=== PATIENT | female | born 1940 | race Caucasian/White ===

== ENCOUNTER 2023-12-13 19:02 | Inpatient (IN) | payer MEDICARE, BC, SELFPAY ==
[2023-12-13 20:00] VITALS: BP 137/74; PULSE 95; RESP 18; TEMP 36.4; O2SAT 97
[2023-12-13] MEDS: Insulin Lispro 100 UNIT/ML INSULN.PEN SC (21:47)
[2023-12-13 22:00] VITALS: BP 133/72; PULSE 91; RESP 15; RESP 16; TEMP 36.6; O2SAT 95; O2SAT 96
[2023-12-13 22:25] LABS: Bedside Glucose 267 mg/dL (74-106)
[2023-12-13] MEDS: BRIMONIDINE 0.2% 5ML BOTTLE 1 DRP OPHTHALMIC (22:57)
[2023-12-13] MEDS: Timolol 0.5% 5ML OPTH.BTL 1 DRP OPHTHALMIC (22:58)
[2023-12-14 06:14] LABS: Absolute Lymphocyte Count 1.37 X10^3/uL (0.83-4.51); Absolute Neutrophil Count 4.4 X10^3/uL (2.0-7.7); Basophil# 0.06 X10^3/uL; Basophil% 0.8 % (0-1); Eosinophils% 6.9 % (0-5); Hematocrit 39.6 % (37-47); Lymphocyte # 1.37 X10^3/ul (0.83-4.51); Lymphocyte % 18.8 % (19-41); Mean Corp Hgb Conc 32.8 g/dL (32-36); Mean Corpuscular Hgb 29.4 pg (27.0-32.0); Mean Corpuscular Volume 89.6 fL (81-99); Mean Platelet Vol. 10.4 fl (6.2-12.0); Monocyte# 0.97 X10^3/uL; Monocyte% 13.3 % (0-10); NRBC Flagged by Analyzer 0 % (0-5); Neutrophil # 4.35 X10^3/uL (2.7-7.7); Neutrophil % 59.9 % (47-70); Platelet Count 225 K/mm3 (150-450); RBC Distribution Width CV 12.7 % (11.6-14.6); RBC Distribution Width SD 41.6 fl (35.1-43.9); Red Blood Count 4.42 M/mm3 (4.2-5.4); White Blood Count 7.3 K/mm3 (4.4-11.0)
[2023-12-14] MEDS: Acetaminophen 500 MG Tablet 1000 MG PO ×3 (06:59→22:09)
[2023-12-14 07:00] VITALS: BMI 29.6
[2023-12-14 07:04] LABS: Phosphorus 3.7 mg/dL (2.5-4.9)
[2023-12-14 07:06] LABS: AST(SGOT) 12 U/L (15-37); Alanine Aminotransfer ALT/SGPT 20 U/L (13-56); Albumin, Serum 3.1 g/dL (3.2-5.0); Alkaline Phosphatase 55 U/L (45-117); Anion Gap 8 (5-15); BUN 11 mg/dL (7-18); BUN/Creat Ratio 18.3 RATIO (10-20); Calcium,Total 9.1 mg/dL (8.5-10.1); Chloride 102 mmol/L (98-107); EST Glomerular Filtration Rate 101 mL/min (>60); Est Glom Filt Rate - Afr Amer 122 mL/min (>60); Globulin 3.1 g/dL (2.2-4.2); Glucose 168 mg/dL (74-106); Potassium 3.8 mmol/L (3.5-5.1); Protein, Total 6.2 g/dL (6.4-8.2); Sodium Level 138 mmol/L (136-145)
[2023-12-14 07:37] LABS: Bedside Glucose 171 mg/dL (74-106)
[2023-12-14] MEDS: Insulin Lispro 100 UNIT/ML INSULN.PEN SC ×4 (08:34→22:15)
[2023-12-14] MEDS: Spironolactone 50 MG Tablet PO (08:34)
[2023-12-14] MEDS: BRIMONIDINE TARTRATE OPHTHALMIC ×2 (08:34→22:06)
[2023-12-14] MEDS: Aspirin 81 MG TAB.CHEW PO (08:34)
[2023-12-14] MEDS: Multivitamins,Therapeutic Tablet 1 TABLET PO (08:34)
[2023-12-14] MEDS: TIMOLOL OPHTHALMIC ×2 (08:34→22:06)
[2023-12-14] MEDS: Ezetimibe 10 MG Tablet PO (08:34)
[2023-12-14] MEDS: Lidocaine 5% Patch 1 PATCH TOPICAL (08:35)
[2023-12-14 08:40] VITALS: BP 138/73; PULSE 82; RESP 16; TEMP 36.5; O2SAT 96
[2023-12-14 09:15] LABS: Bedside Glucose 245 mg/dL (74-106)
--- NOTE | 2023-12-14 09:36 | HP.PCM_ITS ---
HPI - General General Date of Admission: 12/13/23 Date of Service: 12/14/23 Chief Complaint: Skull fracture due to fall HPI Narrative ALISON DAMICO, is a 83 YO F with a PMH of DM II, HLD, BPPV (X4 years), DJD, presbycusis (has bilateral hearing aids), glaucoma, chronic back pain, gallbladder dysfunction and hx of breast CA who had a ground level fall on 12/09/23. She struck her head but, she did not lose consciousness. She sustained a non-displaced occipital fx of the skull. She was admitted to [facility] [place]. C spine imaging was negative for fracture or dislocation. CT of C/A/P showed endometrial thickening measuring up to 9 mm with no other pathology. CTA of the neck on 12/10/2023 showed bilateral atheroscle rotic disease up to 50% stenosis. CT scan of the lumbar spine shows multilevel spondylitic changes with at least moderate spinal canal stenosis at L3-L4. There was an ulcerated plaque in the left carotid artery. Vascular surgery recommended 81 mg of aspirin daily and a high intensity statin for risk factor modification. Lab at admission to showed a low sodium at 132 and low chloride at 95. The BUN was 10 with a creatinine of 0.42. Glucose was elevated at 167. TSH was normal. Hemoglobin A1c is 7.3%. She is on Victoza for the past 3 years and says she takes 1.8 mg weekly. While at she was seen by PT/OT and acute rehab was recommended. Alison was transferred to the acute inpt rehab unit at [facility] on 12/13/23 for 3 hours of therapy daily to restore function/independence at or near her level prior to the fall. She sees a neurologist for vertigo, Dr. Ed Noe PCP is Dr. Tsering Valentine in [place] she has declined therapy for anxiety/depression in the past. passed 4 years ago........interesting that this is when the vertigo started. Alison tells me that she had vertigo after her and she went to therapy and it resolved. Recently she has been c/o a head sensation that seems to get worse when she is up and walking about after her breakfast. She denies having vertigo and denies spinning. She only recently got back on Meclizine, from the neurologist, and took it for 1 week and it did not help......it actually made her worse. She tells me that she had depression after her passed but, she went to counselling at [facility] and she says it helped. She denies feeling depressed at this time and she also denies anxiety. She denies problems sleeping. she falls asleep on the couch at night and then gets up after a while and goes to the kitchen for a snack of a pudding cup and some fruit and then she goes to bed.......this is usually around 2 AM. She denies ever being diagnosed with sleep apnea. She has had a hysteroscopy within the past 4 years because she had some vaginal bleeding. She is not able to recall the name of the doctor she saw but, she had a hysteroscopy and it was negative for malignancy. She tells me that she had an IUD for many years. Alison tells me that she takes Aldactone only when she has increased swelling in her legs.....she does not often take this because it makes me pee too much. All lab work done this morning was personally reviewed. CBC is unremarkable. Sodium is 138 and the potassium is 3.8. BUN is 11 with a creatinine of 0.6. LFTs are unremarkable. Magnesium, phosphorus and calcium are within normal limits. Vitamin D was ordered and is pending. Echocardiogram shows ejection fraction of 55 to 60%. There is impaired relaxation pattern of the left ventricular diastolic filling. The atria are normal size. The aortic valve is mildly thickened. The mitral valve is mildly thickened. She has a trace of tricuspid and mitral regurgitation. [facility] Medical History (Updated 12/15/23 @ 12:[address] Nena Stacy DO) Cancer Cancer Chronic back pain Diabetes mellitus, type 2 Dysfunctional gallbladder Episodic recurrent vertigo Glaucoma Hyperlipidemia Lumbar canal stenosis Presbycusis of both ears Skull fracture without loss of consciousness Thickened endometrium Vertebral fracture, closed Home Medications acetaminophen 500 mg capsule 1,000 mg PO Q8H PRN pain 12/13/23 [History Last Taken Unknown] aspirin 81 mg capsule 81 mg PO DAILY heart health 12/13/23 [History Last Taken Unknown] brimonidine 0.2 %-timolol 0.5 % eye drops drp ophthalmic (eye) BID glaucoma 12/13/23 [History Last Taken Unknown] diclofenac sodium 1 % topical gel topical BID pain to knee 12/13/23 [History Last Taken Unknown] ezetimibe 10 mg tablet 10 mg PO DAILY cholesterol inhibitor 12/13/23 [History Last Taken Unknown] lidocaine 4 % topical patch (Lidocaine Pain Relief) 1 patch topical Q12H pain to lower mid back 12/13/23 [History Last Taken Unknown] multivitamin (Daily Multi-Vitamin tablet) 1 tab PO DAILY supplement 12/13/23 [History Last Taken Unknown] naproxen 500 mg tablet,delayed release (EC-Naprosyn) 250 mg PO .Q6H/PRN PAIN 12/13/23 [History Last Taken Unknown] spironolactone 50 mg tablet (Aldactone) 50 mg PO DAILY HTN 12/13/23 [History Last Taken Unknown] liraglutide 0.6 mg/0.1 mL (18 mg/3 mL) subcutaneous pen injector (Victoza 2-Morgan) 0.3 mg subcut DAILY glucose 12/14/23 [History Last Taken Unknown] Allergy/AdvReac Type Severity Reaction Status Date / Time [id number] Reductase Allergy Mild unknown Verified 12/13/23 20:24 Inhibitor alendronate sodium AdvReac Intermediate burning in Verified 12/13/23 20:24 [From Fosamax] stomach adhesive tape AdvReac Mild blisters Verified 12/13/23 20:24 Family History (Updated 12/14/23 @ 10:[address] Nena Stacy DO) Mother Heart disease Hypertension Father Hypertension Surgical History (Updated 12/14/23 @ 10:[address] Nena Stacy DO) H/O left mastectomy History of ankle surgery History of hysteroscopy Social History (Updated 12/14/23 @ 11:[address] Nena Stacy DO) household members: none housing: house number of children: 3 current occupational status: retired and other details: Retired RN. pets and animals: Yes (1 cat Named Michaela) pets and animals: cat(s) leisure activities: reading history of recent travel: No sexually active: No Smoking Status: Never smoker alcohol intake: never substance use type: does not use ROS Review of Systems ROS Unobtainable: Denies due to encephalopathy, due to endotracheal tube, due to mental condition or due to mental status Constitutional Constitutional: Denies anorexia, change in weight, chills, fatigue, fever(s), headache(s), night sweats, poor appetite or weakness Eyes Eyes: Reports dry eyes; Denies blurry vision, change in vision, diplopia, discharge from eye(s), eye pain or loss of vision ENT HEENT: Reports abnormal hearing and hearing loss; Denies dysphagia, headache(s), nasal congestion or sore throat Cardiovascular Cardiovascular: Reports edema and lightheadedness; Denies chest pain, dyspnea on exertion, orthopnea, palpitations, paroxysmal nocturnal dyspnea or syncope Respiratory/Chest Respiratory/Chest: Denies cough, dyspnea, shortness of breath at rest, shortness of breath with exertion or wheezing Gastrointestinal Gastrointestinal: Reports diarrhea, dyspepsia and other Details: Diarrhea is occasional and the dyspepsia happens only with fatty foods. ; Denies abdominal pain, constipation, hematemesis, hematochezia, nausea or vomiting Genitourinary Genitourinary: Reports urinary incontinence and other Details: Occasional urge incontinence. Musculoskeletal Musculoskeletal: Reports back pain, joint pain, joint stiffness and other Details: she has difficulty ambulating and uses a device but, this is due to loss of balance and not so much weakness. ; Denies joint swelling, neck pain, numbness or tingling Integumentary Integumentary: Reports alopecia and other Details: she has a healing wound aolng the R jaw line from recent excision of a skin cancer. ; Denies jaundice Neurologic Neurologic: Denies confusion, disequilibrium, dizziness, focal weakness, headache(s), paresthesias, radicular pain, seizures or tremor(s) Psychiatric Psychiatric: Denies abnormal sleep pattern, anhedonia, anxiety, change in appetite, depression, homicidal ideation, hopelessness, irritability, mood swings or suicidal ideation Endocrine Endocrinology: Denies change in body appearance, polydipsia or polyuria Hematologic/Lymphatic Hematologic/Lymphatic: Reports easy bruising; Denies easy bleeding or lymphadenopathy Allergic/Immunologic Allergic/Immunologic: Denies rhinitis, eczemia or asthma Vital Signs Vital Signs Vital Signs: 12/13/23 20:00 12/13/23 22:00 12/13/23 22:00 Temperature 97.5 F L 97.9 F Temperature Source Temporal Temporal Pulse Rate 95 91 91 Pulse Strength Respiratory Rate 18 16 15 Respiratory Effort Normal Non-Labored Respiratory Depth Normal Respiratory Pattern Normal Blood Pressure 137/74 H 133/72 H Blood Pressure Mean 95 92 Blood Pressure Source Monitor Monitor Blood Pressure Position Semi-Fowlers Semi-Fowlers Blood Pressure Location Right Arm Right Arm Pulse Ox 97 95 96 Oxygen Delivery Method Room Air Room Air Room Air 12/14/23 08:42 12/14/23 08:43 12/14/23 08:40 Temperature 97.7 F L Temperature Source Temporal Pulse Rate 82 Pulse Strength Normal (2+) Respiratory Rate 16 Respiratory Effort Normal Non-Labored Respiratory Depth Normal Respiratory Pattern Normal Blood Pressure 138/73 H Blood Pressure Mean 94 Blood Pressure Source Monitor Blood Pressure Position Semi-Fowlers Blood Pressure Location Right Arm Pulse Ox 96 Oxygen Delivery Method Room Air Room Air Weight Weight: 161 lb Body Mass Index (BMI) 29.6 Physical Exam Const alert and no apparent distress Constitutional Narrative: forgetful [place]'....I have to repeat myself even though she has her hearing aids in General Appearance: cooperative, comfortable, well kempt and well developed HEENT normocephalic HEENT Narrative: Mucous membranes are dry.. She has Bandaid over the R side of the jaw.....she had recent excision of a sking cancer. There is no jeremy-incisional erythema, no discharge from the wound and no significant swelling around the incision. No cervical adenopathy Nose: external nose normal External Ear: external ears normal and other Other Details: Bilateral hearing aids are present Eyes PERRL, EOMs intact bilaterally, conjunctivae normal and no scleral icterus Eyes Narrative: No mattering of the eyelashes or discharge from the eye. General Eye: normal appearance of both eyes Neck supple, no JVD, No nodes and no carotid bruits Chest Chest Narrative: Has had a left mastectomy. Chest: symmetrical chest wall rise Resp normal respiratory effort, normal air movement and clear to auscultation bilaterally Effort and Inspection: able to speak in complete sentences Cardio regular rate, regular rhythm, no murmurs, no rub and no gallops Cardio Narrative: No ectopy GI normal to inspection, nondistended, normoactive bowel sounds, soft to palpation and non-tender GI Narrative: No guarding with palpation. No organomegaly appreciated and no masses. Back/Spine Lumbar Spine / Lower Back: normal to inspection Extremity no calf tenderness Extremity Narrative: Trace pitting edema of the ankles. Skin no jaundice General Skin Exam: no breakdown Wound Narrative: The fascial incision over the right jaw is healing and there is no jeremy- incisional erythema, no discharge and no significant swelling around the inc ision. Neuro oriented x3, CN's II-XII intact bilaterally, moves all extremities and no sensory deficits noted Neuro Narrative: Forgetful Psych mental status grossly normal, cooperative, affect normal, denies hallucinations and denies suicidal ideation Appearance: grossly normal, appropriate and well kempt Attitude: calm Activity / Motor Behavior: appropriate eye contact Speech: normal speech Results Lab / Micro Data 12/14/23 05:44 12/14/23 05:44 Labs: Laboratory Results - last 24 hr 12/13/23 21:47: POC Glucose 267 H 12/14/23 05:44: WBC 7.3, RBC 4.42, Hgb 13.0, Hct 39.6, MCV 89.6, MCH 29.4, MCHC 32.8, RDW Std Deviation 41.6, RDW Coeff of [place] 12.7, Plt Count 225, MPV 10.4, Immature Gran % (Auto) 0.300, Neut % (Auto) 59.9, Lymph % (Auto) 18.8 L, [place] % (Auto) 13.3 H, Eos % (Auto) 6.9 H, Baso % (Auto) 0.8, Absolute Neuts (auto) 4.4, Absolute Lymphs (auto) 1.37, Nucleated RBC % 0, Sodium 138, Potassium 3.8, C hloride 102, Carbon Dioxide 28.0, Anion Gap 8, BUN 11, Creatinine 0.60, Est GFR (MDRD) Af Amer 122, Est GFR (MDRD) Non-Af 101, BUN/Creatinine Ratio 18.3, Glucose 168 H, Calcium 9.1, Phosphorus 3.7, Magnesium 2.0, Total Bilirubin 0.50, AST 12 L, ALT 20, Alkaline Phosphatase 55, Total Protein 6.2 L, Albumin 3.1 L, Globulin 3.1, Albumin/Globulin Ratio 1.0 12/14/23 07:07: POC Glucose 171 H 12/14/23 08:30: POC Glucose 245 H Assessment & Plan Assessment/Plan (1) Physical debility: (2) History of recent fall: (3) Skull fracture without loss of consciousness: QUALIFIERS: Encounter type: subsequent encounter Fracture type: closed (4) Episodic recurrent vertigo: PLAN: Not really having vertigo. What she is c/o is LOB and feeling lightheaded when standing. she was dehydrated with a low sodium at the time of presentation to the ED. She was taking Aldactone 50 mg PRN for ankle swelling prior to the fall. EF is normal and no dx of pulmonary HTN. Likely etiology of the ankle edema is obesity and venous insufficiency. Will continue with SVETA drew. (5) Diabetes mellitus, type 2: PLAN: Plan PLAN PT for gait stability OT for ADL's Speech therapy for cognitive assessment due to poor memory and recent head trauma Analgesics as needed Bowel protocol Fall precautions Assess for Anxiety/Depression GI prophylaxis with famotidine-ordered as needed once daily for dyspepsia DVT prophylaxis with Lovenox 40 mg subcu daily Follow up with PCP, vascular surgery (to monitor for progression of carotid stenosis) and neurology following DC from IP Rehab AM lab including CMP, CBC, Mag and Phos - personally reviewed. Overnight trending pulse ox Check a vitamin D level Obtain copy of TTE done at [facility] Discontinue daily spironolactone Her daughter Malini is bringing in Victoza which we will start this afternoon. Famotidine 20 mg daily as needed dyspepsia/nausea Lovenox 40 mg subcu daily Orthostatic vital signs Obtain records from PCP and neurology Charges/Coding Visit Charges Inpatient E&M: 56036 Init Hosp L2
--- NOTE | 2023-12-14 11:46 | PCM.RU.PYE ---
Admission Information Primary Diagnosis:: Skull fracture Status Changes from Prescreening?: No changes Identified Actual Problem List:: Falls, Skin Intergrity, Pain, ALteration in Cmfrt, Mobility Impaired, Self Care Deficit, Diabetes, Hyperglycemia and Alteration-Leisure Activ. Potential Problem List:: DVT, Bleeding, Infection, UTI, Aspiration, Falls, Skin Integrity and Depression Risk of Complications DVT: LMWH and SVETA Hose Bleeding: Monitor Lab Values, Nursing to Teach Precautions for anti-coagulation therapy., Wound, if applicable, to be assessed every shift. and Stroke patients assessed for lethargy or change in status. Infection: Clinical Staff to Monitor for S/S of infection: and S/S of infection include fever, redness, warmth, etc. Urinary Tract Infection: Monitor for frequency, burning, discomfort, or incontinence. and Nursing will obtain urine sample for urinalysis and C&S when ordered. Aspiration: Clinical staff will monitor for coughing, drooling, congestion., Speech will evaluate swallowing and dsyphasia. and Nursing will monitor patient swallowing during meals. Falls: Patient will be evaluated for Fall Precautions and Patient will be placed on Fall Precautions as indicated per protocol. Skin Breakdown: Nursing will assess skin daily using assessment tool. and Nursing will place on Skin Breakdown Precautions as indicated. Pain: Clinical staff will assess patient's pain level per protocol., Medications will be given, if needed, and the pain level reassessed. and Other methods: Massage, distraction, decrease stimulus, etc. used PRN. Plan of Care Patient requires physician specializing in physical medicine and rehab oversight to provide close medical supervision of rehab issues including: Pain Management, Sleep Problems, Bowel and Bladder, Medical and co-morbidity Management, DVT prophylaxis, Rehabilitation Leadership and Coordination of treatment team Patient needs Physical Therapy: For a minimum of 1 hour and At least 5 out of 7 days Patient needs Physical Therapy to improve:: Mobility, Strengthening, Transfers, Stretching, ROM, Endurance, Stairs, Gait and Balance Patient needs Occupational Therapy: For a minimum of 1 hour and At least 5 out of 7 days Patient needs Occupational Therapy to improve ADL's incl.: Eating, Grooming, Bathing, Dressing, Toileting, Toilet transfers, Community Reintegration, Higher functioning activities, Household tasks, Adaptive Equipment, Splinting and Other activities as determined Patient requires 24/ Rehabilitation Nursing for: Pain Issues, Identifying and preventing risk factors, Monitoring and reporting current medical conditions, Assisting with ambulation, transfer, and all ADL's, Teaching patients about disease process and medications, Family teaching, Providing safe environment, Bowel and Bladder Issues, Skin integrity and Medication Management Patient needs Certified Technician Specialist/ Case Management for: Discharge Planning, Arranging Home Equipment or Services and Family Interventions Patient needs Dietary and Nutrition Services for: Adequate Nutrition, Nutritional Supplements and Nutritional Education Goals Goals Patient will remain: free from falls Patient will perform eating at: MOD I level of assist. Patient will perform bed mobility at: MOD I level of assist. Patient will complete transfers from bed to chair at: MOD I level of assist. Patient will ambulate: - (350 feet with least restrictive device at standby assist on various surfaces to allow her to return home/community) Patient will complete upper body dressing at: MOD I level of assist. Patient will complete lower body dressing at: MOD I level of assist. Patient will complete toilet transfer at: MOD I level of assist. Patient will complete toileting at: MOD I level of assist. Patient will perform bathing at: MOD I level of assist. Patient will perform Tub/Shower transfer at: MOD I level of assist. Patient will complete grooming at: MOD I level of assist. Patient will complete home management skills at: MOD I level of assist. Patient will achieve: - (2 steps with 1 handrail at standby assist to allow entrance to her home.) Patient will have pain level of: of 3 or less Patient's skin will: remain intact Patient will receive: adequate nutrition. Discharge Planning Estimated Length of stay (days): 21 Anticipated D/C Destination: Home (Home health care versus outpatient therapy to be determined closer to the discharge date.) Was Preadmission Assessment Accurate?: Yes
[2023-12-14 12:30] LABS: Vitamin D,25 Hydroxy 23.2 ng/mL
[2023-12-14 12:41] LABS: Bedside Glucose 201 mg/dL (74-106)
[2023-12-14] MEDS: Flu Vacc QS2023-24(65YR UP)/PF 240 MCG/0.7 ML Syringe IM (12:53)
[2023-12-14 13:00] VITALS: BP 131/62; BP 134/61; BP 134/78; PULSE 84; PULSE 85; PULSE 92
[2023-12-14 16:22] LABS: Bedside Glucose 210 mg/dL (74-106)
[2023-12-14 19:26] VITALS: BP 144/75; PULSE 97; RESP 17; TEMP 36.6; O2SAT 981
[2023-12-14 21:34] VITALS: PULSE 97; RESP 17; O2SAT 98
[2023-12-14 22:20] VITALS: PULSE 85; O2SAT 97
[2023-12-14 23:04] LABS: Bedside Glucose 203 mg/dL (74-106)
[2023-12-15 03:00] VITALS: BMI 30.9
[2023-12-15] MEDS: Enoxaparin 40 MG/0.4 ML Syringe SC (06:35)
[2023-12-15] MEDS: Acetaminophen 500 MG Tablet 1000 MG PO ×3 (06:35→20:46)
[2023-12-15 06:59] LABS: Bedside Glucose 159 mg/dL (74-106)
[2023-12-15] MEDS: Senna/Docusate Sodium 1 Tablet 2 TABLET PO (08:27)
[2023-12-15] MEDS: Lidocaine 5% Patch 1 PATCH TOPICAL (08:27)
[2023-12-15] MEDS: Celecoxib 100 MG Capsule PO (08:27)
[2023-12-15] MEDS: Aspirin 81 MG TAB.CHEW PO (08:27)
[2023-12-15] MEDS: Ezetimibe 10 MG Tablet PO (08:27)
[2023-12-15] MEDS: Multivitamins,Therapeutic Tablet 1 TABLET PO (08:27)
[2023-12-15] MEDS: TIMOLOL OPHTHALMIC ×2 (08:28→20:47)
[2023-12-15] MEDS: BRIMONIDINE TARTRATE OPHTHALMIC ×2 (08:28→20:47)
[2023-12-15] MEDS: Famotidine 20 MG Tablet PO (08:32)
[2023-12-15 10:00] VITALS: BP 126/60; PULSE 79; RESP 16; TEMP 36.8; O2SAT 97
[2023-12-15 12:17] LABS: Bedside Glucose 187 mg/dL (74-106)
[2023-12-15] MEDS: Insulin Lispro 100 UNIT/ML INSULN.PEN SC (12:20)
--- NOTE | 2023-12-15 13:02 | PCM.PROGNOTE ---
Subjective Subjective Afebrile VSS-systolic blood pressure is a tad high but the blood pressure this a.m. was 126/60. Heart rate is within normal limits. Orthostatic vital signs done yesterday were normal however there was only 1 minute allowed between but just some changes. Maintaining appropriate oxygen saturation on RA-95 to 98%. Oral intake - FOOD good FLUIDS fair Has been incontinent of urine The blood sugar record was reviewed. She took her first dose of Victoza this morning. Fasting was 159 and the blood sugar prior to lunch was 187. Refused the SSI in the morning. Discussed with nursing - no problems that need addressed. Slept well las night. Reviewed the THERAPY notes Medication list reviewed. vitamin D level is low at 23. The overnight trending pulse ox was abnormal with hypoxemia and 1 desaturation event. Pulse ox < 90% 4.8% of the time with `1 desaturation event. neck circumference is 38 cm. She snores and has daytime somnolence. Can fall asleep in the car if driving for more than 1 hour and routinely falls asleep watching TV. Having memory difficulties. Naps during the day. Has never had a sleep study. Alison tells me that she slept well last night. She denies cephalgia, neck pain, chest pain, shortness of breath, cough, palpitations, N/V/abd pain. calf tenderness and dysuria. she denies restless legs at night but, she tells me that the SCD's were bothersome last night. Objective Data Objective Data Vital Signs: Vital Signs Temp Pulse Resp BP Pulse Ox O2 Del Method FiO2 98.3 F 79 16 126/60 H 97 Room Air 21 12/15/23 10:12/15/23 10:12/15/23 10:12/15/23 10:12/15/23 10:12/15/23 10:12/14/23 22:20 Oxygen Delivery Method Room Air Weight: 168 lb 3.015 oz Body Mass Index (BMI) 30.9 Intake & Output: Intake and Output for Last 24 Hours 12/13/23 12/14/23 12/15/23 23:59 23:59 23:59 Intake Total 1200 / 1200 780 / 780 Output Total 2049 / 2049 600 / 600 Balance -850 / -850 180 / 180 Lab / Micro Data 12/14/23 05:44 12/14/23 05:44 Labs: Laboratory Results - last 24 hr 12/14/23 16:00: POC Glucose 210 H 12/14/23 22:12: POC Glucose 203 H 12/15/23 06:33: POC Glucose 159 H 12/15/23 11:59: POC Glucose 187 H Physical Exam Const alert and no apparent distress Constitutional Narrative: forgetful [place]....I have to repeat myself even though she has her hearing aids in HEENT HEENT Narrative: Mucous membranes are dry.. She has Bandaid over the R side of the jaw.....she had recent excision of a sking cancer. There is no jeremy-incisional erythema, no discharge from the wound and no significant swelling around the incision. No cervical adenopathy Resp normal respiratory effort, normal air movement and clear to auscultation bilaterally Effort and Inspection: able to speak in complete sentences Cardio regular rate, regular rhythm, no murmurs, no rub and no gallops Cardio Narrative: No ectopy GI normal to inspection, nondistended, normoactive bowel sounds, soft to palpation and non-tender Extremity no calf tenderness Extremity Narrative: the ankle edema she had yesterday has resolved with SVETA hose. Skin no jaundice General Skin Exam: no breakdown Wound Narrative: The fascial incision over the right jaw is healing and there is no jeremy-incisional erythema, no discharge and no significant swelling around the incision. Assessment & Plan Assessment/Plan (1) Vitamin D deficiency: (2) Physical debility: (3) Skull fracture without loss of consciousness: QUALIFIERS: Encounter type: subsequent encounter Fracture type: closed (4) Memory loss: PLAN: Chronic? Acute? or acute on chronic due to recent fall/TBI. She realizes that her memory is not what it used to be. Will need to discuss with her dtr Malini to see if she has noticed any memory problems prior to the fall/skull fx/TBI (5) Diabetes mellitus, type 2: PLAN: Will continue to monitor the BS's AC and HS for a few more days. Would like to see the BS's consistently < 180 with no hypoglycemia. (6) Episodic recurrent vertigo: PLAN: Orthostatics were negative yesterday however there was only 1 minute allowed between position changes. The head sensation only seems to happen when she is standing. PLAN: Plan 1. Continue therapy 2. Continue ACHS blood sugars. Dc the SSI since she had her Victoza today. If the BS's are > 180 will need to add and oral agent. did not tolerate 1,000 mg of Glucophage in the past but, may tolerate a lower dose and there would be less risk of hypoglycemia than Amaryl 3. Start a vitamin D supplement 4. Consult speech therapy for cognitive evaluation. 5. Recommend an overnight sleep study at OR. 6. Encouraged increased fluid intake Charges/Coding Visit Charges Inpatient E&M: 52631 Subs Hosp L1
--- NOTE | 2023-12-15 15:49 | CASEMGMT ---
[facility] Sw met with patient to complete initial assessment. Introduced self and role. Sw verified patient's contacts. Patient confirmed code status to be full code. Patient states that she has completed advanced directives, and has asked her daughter to bring in copies to be scanned into her file. Patient was educated to insurance benefits. Patient states that her goal is to be discharged to home when medically ready. Sw will remain involved and available throughout current hospitalization and will assist with discharge planning. Nazia Levi, MULTI SKILLED OPERATOR, [employer] ENGINEER
[2023-12-15 16:33] LABS: Bedside Glucose 235 mg/dL (74-106)
[2023-12-15 20:15] VITALS: BP 138/62; PULSE 87; RESP 20; TEMP 36.5; O2SAT 96
[2023-12-15 20:35] VITALS: PULSE 87; RESP 20; O2SAT 96
[2023-12-15 21:36] LABS: Mucous, Urine 0 SEEN /hpf (<or=2+); Red Blood Cells-Urine 0 SEEN /hpf (0-5); Squamous Epithelial Cells - UA 0 SEEN /hpf (5-10)
[2023-12-15 21:38] LABS: Color, Urine Straw (Yellow); Glucose, Dipstick Normal (Normal); Ketone-Dipstick Negative (Negative); Leukocyte Esterase-Dipstick 100 /ul (Negative); Nitrite-Dipstick Negative (Negative); Occult Blood-Urine Negative /ul (Negative); Protein-Dipstick Negative (Negative); Specific Gravity, Urine 1.005 (1.002-1.030); Urine Bilirubin Dipstick Negative (Negative); Urine Clarity Clear (Clear); Urine Urobilinogen Normal (Normal)
[2023-12-15 21:46] LABS: Bacteria 1+ /hpf (None Seen); White Blood Cells 0-5 SEEN /hpf (0-5)
[2023-12-15 21:49] LABS: Bedside Glucose 160 mg/dL (74-106)
[2023-12-16] MEDS: Acetaminophen 500 MG Tablet 1000 MG PO ×3 (06:19→22:16)
[2023-12-16] MEDS: Enoxaparin 40 MG/0.4 ML Syringe SC (06:19)
[2023-12-16 06:43] LABS: Bedside Glucose 162 mg/dL (74-106)
[2023-12-16] MEDS: Lidocaine 5% Patch 1 PATCH TOPICAL (08:07)
[2023-12-16] MEDS: Cholecalciferol (VIT D3) 25 MCG TABLET (1,000 UNITS) PO (08:08)
[2023-12-16] MEDS: TIMOLOL OPHTHALMIC ×2 (08:08→22:16)
[2023-12-16] MEDS: Ezetimibe 10 MG Tablet PO (08:08)
[2023-12-16] MEDS: Multivitamins,Therapeutic Tablet 1 TABLET PO (08:08)
[2023-12-16] MEDS: Celecoxib 100 MG Capsule PO (08:08)
[2023-12-16] MEDS: BRIMONIDINE TARTRATE OPHTHALMIC ×2 (08:08→22:16)
[2023-12-16] MEDS: Aspirin 81 MG TAB.CHEW PO (08:08)
[2023-12-16 08:55] VITALS: BP 135/72; PULSE 80; RESP 17; TEMP 36.6; O2SAT 94
--- NOTE | 2023-12-16 11:39 | PCM.PROGNOTE ---
Subjective Subjective Alison was seen on team rounds. Her daughter Malini participated by phone. Afebrile VSS -systolics are more often than not mildly elevated and ranged from 134-144. Heart rate is within normal limits. Maintaining appropriate oxygen saturation on RA Oral intake - FOOD good FLUIDS poor..... She only took 980 yesterday and the fluid balance was -980. Overnight she was -410. The blood sugar record was reviewed. Blood sugar at 4 PM yesterday was 235. At at bedtime it was 160 and this morning it was 162. Discussed with nursing -she reported to night nursing that she got dizzy when getting up from a chair or laying down. Nurses notes say that oxygen was applied but this is not reflected in the graphic chart. Reviewed the THERAPY notes Medication list reviewed. Urine yesterday showed 0 RBCs per high-power field and 0-5 WBCs per high-powered field. There was 1+ bacteria. It was nitrite negative. She is afebrile with a normal white blood cell count. She denies dysuria. No need for a urine culture at this time. Still c/o dizziness. She also admits to feeling anxious....this likely does not help with the dizziness. She denies cephalgia, chest pain, shortness of breath, cough, nausea/vomiting/abdominal pain, dysuria and calf pain. Objective Data Objective Data Vital Signs: Vital Signs Temp Pulse Resp BP Pulse Ox O2 Del Method FiO2 97.9 F 80 17 135/72 H 94 Room Air 21 12/16/23 08:55 12/16/23 08:55 12/16/23 08:55 12/16/23 08:55 12/16/23 08:55 12/16/23 08:55 12/14/23 22:20 Oxygen Delivery Method Room Air Weight: 168 lb 3.015 oz Body Mass Index (BMI) 30.9 Intake & Output: Intake and Output for Last 24 Hours 12/14/23 12/15/23 12/16/23 23:59 23:59 23:59 Intake Total 1200 / 1200 980 / 980 340 / 340 Output Total 2049 / 1959 750 / 750 Balance -850 / -850 -980 / -980 -410 / -410 Lab / Micro Data 12/14/23 05:44 12/14/23 05:44 Labs: Laboratory Results - last 24 hr 12/15/23 11:59: POC Glucose 187 H 12/15/23 16:05: POC Glucose 235 H 12/15/23 21:15: Urine Color Straw, Urine Clarity Clear, Urine pH 7.0, Ur Specific [place] 1.005, Urine Protein Negative, Urine Glucose (UA) Normal, Urine Ketones Negative, Urine Occult Blood Negative, Urine Nitrite Negative, Urine Bilirubin Negative, Urine Urobilinogen Normal, Ur Leukocyte Esterase 100 H, Urine RBC 0 SEEN, Urine WBC 0-5 SEEN, Ur Squamous Epith Cells 0 SEEN, Urine Bacteria 1+, Urine Mucus 0 SEEN 12/15/23 21:28: POC Glucose 160 H 12/16/23 06:17: POC Glucose 162 H Physical Exam Const alert Constitutional Narrative: Hard of hearing, even with the hearing aids in General Appearance: cooperative HEENT normocephalic Mouth: dry mucous membranes Eyes PERRL, EOMs intact bilaterally, conjunctivae normal and no scleral icterus Eyes Narrative: No mattering of the eyelashes or discharge from the eye. General Eye: normal appearance of both eyes Neck supple Chest Chest Narrative: Has had a left mastectomy. Chest: symmetrical chest wall rise Resp normal respiratory effort and clear to auscultation bilaterally Resp Narrative: Able to speak in complete sentences. Effort and Inspection: able to speak in complete sentences Cardio regular rate, regular rhythm, no murmurs and no gallops Cardio Narrative: No ectopy GI normal to inspection, nondistended, normoactive bowel sounds, soft to palpation and non-tender GI Narrative: No guarding with palpation. No organomegaly appreciated and no masses. Back/Spine Lumbar Spine / Lower Back: normal to inspection Extremity no calf tenderness Extremity Narrative: Ankle edema is controlled with SVETA hose. Skin no jaundice General Skin Exam: no breakdown Rashes: no rashes Wound Narrative: The fascial incision over the right jaw is healing and there is no jeremy-incisional erythema, no discharge and no significant swelling around the incision. Neuro oriented x3, CN's II-XII intact bilaterally, moves all extremities and no sensory deficits noted Neuro Narrative: Forgetful Psych mental status grossly normal, cooperative, affect normal, denies hallucinations and denies suicidal ideation Appearance: grossly normal, appropriate and well kempt Attitude: calm Activity / Motor Behavior: appropriate eye contact Speech: normal speech Assessment & Plan Assessment/Plan (1) Vitamin D deficiency: (2) Physical debility: (3) Skull fracture without loss of consciousness: QUALIFIERS: Encounter type: subsequent encounter Fracture type: closed (4) Memory loss: (5) Diabetes mellitus, type 2: (6) Episodic recurrent vertigo: PLAN: Plan 1. Continue therapy 2. Start Cozaar 25 mg p.o. daily 3. Start Glucophage 500 mg daily........may need to hold stool softeners. 4. PT mentioned that her shoulders and neck muscles are very tight. She holds her head at an angle when walking and working with therapy. She suggested trying to treat the musculoskeletal problems to see if the dizziness improves. Still no nystagmus. She does have hearing loss and occasional ringing in the ears. Meniere's is a possibility BUT, staring a diuretic with her is not going to be good ....... she is chronically volume depleted due to poor oral intake. I suspect the dizziness is multifactorial. Will try treating the musculoskeletal dysfunction in the next and shoulders with a cream containing Voltaren, baclofen and lidocaine. 5. Start sertraline 25 mg daily for anxiety/depression. Alison is agreeable to this. Patient has been driving despite having dizziness. Will need to address restricting her driving privileges if she remains dizzy at Dc from rehab. Charges/Coding Visit Charges Inpatient E&M: 36185 Subs Hosp L2
[2023-12-16 12:05] LABS: Bedside Glucose 176 mg/dL (74-106)
--- NOTE | 2023-12-16 13:03 | CASEMGMT ---
Social Work IDT met with patient and dtr via conference call for Team meeting. Discussed patient's progress in PT/OT/ST/SN. Educated to Medicare approval of 13 days with DC 12/25. Pt's goal is to return home alone. Pt did agree to Dr to start pt on antianxiety medication. Pt is also started on overnight O2. Will ReTeam next week. SW will continue to follow for DC planning. Bhavna Paige, LPN [employer]
[2023-12-16] MEDS: Arthritis Pain Compound 60 CLICK TUBE TOPICAL ×2 (14:08→22:15)
[2023-12-16] MEDS: metFORMIN HCl 500 MG Tablet PO (14:09)
[2023-12-16] MEDS: Losartan Potassium 25 MG Tablet PO (14:09)
[2023-12-16 17:01] LABS: Bedside Glucose 190 mg/dL (74-106)
[2023-12-16 22:00] VITALS: BP 128/65; PULSE 92; RESP 17; TEMP 37; O2SAT 94
--- NOTE | 2023-12-16 22:00 | NURSING ---
Patient c/o itching since I got that new med today, mostly ears, legs and back. Pt did state that she has sensitive skin and maybe the sheets are causing it. notified and 1x order for lynettel obtained.
[2023-12-16] MEDS: DiphenhydrAMINE 12.5 MG/5 ML UDC PO (22:40)
[2023-12-16 23:04] LABS: Bedside Glucose 176 mg/dL (74-106)
[2023-12-17] MEDS: Arthritis Pain Compound 60 CLICK TUBE TOPICAL ×3 (07:02→22:39)
[2023-12-17] MEDS: Enoxaparin 40 MG/0.4 ML Syringe SC (07:03)
[2023-12-17] MEDS: Acetaminophen 500 MG Tablet 1000 MG PO ×3 (07:03→22:39)
[2023-12-17 07:30] LABS: Bedside Glucose 129 mg/dL (74-106)
[2023-12-17 08:43] VITALS: BP 128/67; PULSE 84; RESP 15; TEMP 36.8; O2SAT 96
[2023-12-17] MEDS: Aspirin 81 MG TAB.CHEW PO (09:14)
[2023-12-17] MEDS: Cholecalciferol (VIT D3) 25 MCG TABLET (1,000 UNITS) PO (09:14)
[2023-12-17] MEDS: Multivitamins,Therapeutic Tablet 1 TABLET PO (09:14)
[2023-12-17] MEDS: metFORMIN HCl 500 MG Tablet PO (09:14)
[2023-12-17] MEDS: Losartan Potassium 25 MG Tablet PO (09:15)
[2023-12-17] MEDS: Celecoxib 100 MG Capsule PO (09:15)
[2023-12-17] MEDS: Lidocaine 5% Patch 1 PATCH TOPICAL (09:15)
[2023-12-17] MEDS: Ezetimibe 10 MG Tablet PO (09:16)
[2023-12-17] MEDS: Sertraline 50 MG Tablet 25 MG PO (09:17)
[2023-12-17] MEDS: TIMOLOL OPHTHALMIC ×2 (09:18→22:39)
[2023-12-17] MEDS: BRIMONIDINE TARTRATE OPHTHALMIC ×2 (09:18→22:39)
--- NOTE | 2023-12-17 10:01 | PN_ITS ---
Subjective Subjective Afebrile VSS-she was started on Cozaar 25 mg daily yesterday and the blood pressure this morning is 128/67. Blood pressure at at bedtime was 128/65. Heart rate is within normal limits. Maintaining appropriate oxygen saturation on RA Oral intake - FOOD good FLUIDS she did better with fluids yesterday was able to take 1560 p.o. The blood sugar record was reviewed. Blood sugar was 198 at suppertime yesterday and 176 at at bedtime. The fasting sugar today is 129. No hypoglycemia. She was started on Glucophage 500 mg once daily and she received her first dose yesterday. Discussed with nursing - She had itching of the back and arms and ears last night. She got 1 dose of Benadryl 12.5 mg at 22:40 last evening and today she denies itching. She tells me that she thinks the pruritus was related to the hospital gown and when she changed out of the gown the pruritus resolved. She denies any pruritus today. Reviewed the THERAPY notes Medication list reviewed. Alison tells me that she is less dizzy today. She has no vertigo. She tells me when she first sits up in bed in the morning she feels lightheaded but after she is up and moving about it seems to improve. She denies cephalgia, pal pitations, chest pain, shortness of breath, nausea/vomiting/abdominal pain/diarrhea, dysuria and calf pain. She is very cooperative with the therapists. Her only real complaint is that her hearing aids are not working properly and she is not hearing as well as she used to. She has been adjusting them with no success. Objective Data Objective Data Vital Signs: Vital Signs Temp Pulse Resp BP Pulse Ox O2 Del Method FiO2 98.3 F 84 15 128/67 H 96 Room Air 21 12/17/23 08:43 12/17/23 08:43 12/17/23 08:43 12/17/23 08:43 12/17/23 08:43 12/17/23 08:43 12/14/23 22:20 Oxygen Delivery Method Room Air Weight: 168 lb 3.015 oz Body Mass Index (BMI) 30.9 Intake & Output: Intake and Output for Last 24 Hours 12/15/23 12/16/23 12/17/23 23:59 23:59 23:59 Intake Total 980 / 980 1560 / 1560 480 / 480 Output Total 1959 / 1959 1850 / 1850 1100 / 1100 Balance -980 / -980 -290 / -290 -620 / -620 Lab / Micro Data 12/14/23 05:44 12/14/23 05:44 Labs: Laboratory Results - last 24 hr 12/16/23 11:48: POC Glucose 176 H 12/16/23 16:43: POC Glucose 190 H 12/16/23 22:30: POC Glucose 176 H 12/17/23 07:11: POC Glucose 129 H Micro: Microbiology 12/15/23 21:15 Urine Catheter - Catheter Urine Culture - Preliminary Staphylococcus species Physical Exam Const alert Constitutional Narrative: forgetful and repeats herself a lot. General Appearance: cooperative HEENT HEENT Narrative: No pain with palpation of the occiput. Neck is supple. MM are more moist today Resp normal respiratory effort and clear to auscultation bilaterally Resp Narrative: Able to speak in complete sentences. Effort and Inspection: Negative for tachypneic Cardio regular rate, regular rhythm, no murmurs and no gallops GI normal to inspection, nondistended, normoactive bowel sounds, soft to palpation and non-tender GI Narrative: mildly tympanic. No guarding with palpation. No cramping and no heartburn. Extremity no calf tenderness Extremity Narrative: Akbar hose are in place. General Extremity: Negative for edema Skin General Skin Exam: no breakdown Rashes: no rashes Psych Psych Narrative: Gets anxious at times. Started on Sertraline 25 mg daily. DTR Maliin feels that she still has some depression ever since her 4 years ago. Has some tension with her oldest dtr whom Alison feels treats her like a child. She is very talkative. Appearance: appropriate Assessment & Plan Assessment/Plan (1) Physical debility: (2) Skull fracture without loss of consciousness: QUALIFIERS: Encounter type: subsequent encounter Fracture type: closed (3) Memory loss: (4) Diabetes mellitus, type 2: (5) Episodic recurrent vertigo: PLAN: Not really having vertigo. No saccades. More of a lightheadedness........this is likely multifactorial and also likely recently exacerbated due to head trauma/TBI (6) Closed TBI (traumatic brain injury): PLAN: Due to a fall resulting in a occipital skull fracture. (7) Carotid stenosis, non-symptomatic: PLAN: Plan 1. Continue therapy 2. No changes to the drug regimen today. Continue to monitor blood pressure closely. Goal blood pressure is less than 130/80. 3. She has disease and narrowing in the BL carotids but, it is less than 50%. continue with risk factor management. Goal BP < 130/80, LDL < 70, HGBA1C < 7.5 (avoid hypoglycemia). Continue ASA 81 mg daily. Should follow up with vascular surgery yearly to monitor for progression of carotid stenosis. 4. she is forgetful and having difficulty with higher level executive functioning. I suspect some of this is chronic but, recent TBI is likely exacerbating. This coupled with the dizziness concerns me because she does still drive, when I am not dizzy. Will recommend to Alison and her family that she not be allowed to drive until she attends a driving school for evaluation to determine if it is safe for her to drive. Charges/Coding Visit Charges Inpatient E&M: 92734 Subs Hosp L1
[2023-12-17 11:40] LABS: Bedside Glucose 182 mg/dL (74-106)
[2023-12-17 17:36] LABS: Bedside Glucose 156 mg/dL (74-106)
[2023-12-17 22:00] VITALS: BP 146/70; PULSE 83; RESP 16; TEMP 36.9; O2SAT 92
[2023-12-17 23:28] LABS: Bedside Glucose 141 mg/dL (74-106)
[2023-12-18] MEDS: Enoxaparin 40 MG/0.4 ML Syringe SC (06:30)
[2023-12-18] MEDS: Acetaminophen 500 MG Tablet 1000 MG PO ×3 (06:30→22:23)
[2023-12-18] MEDS: Arthritis Pain Compound 60 CLICK TUBE TOPICAL ×3 (06:31→22:00)
[2023-12-18 07:17] LABS: Bedside Glucose 156 mg/dL (74-106)
[2023-12-18] MEDS: Lidocaine 5% Patch 1 PATCH TOPICAL (07:56)
[2023-12-18] MEDS: Losartan Potassium 25 MG Tablet PO (07:58)
[2023-12-18] MEDS: Aspirin 81 MG TAB.CHEW PO (07:58)
[2023-12-18] MEDS: metFORMIN HCl 500 MG Tablet PO (07:59)
[2023-12-18] MEDS: Cholecalciferol (VIT D3) 25 MCG TABLET (1,000 UNITS) PO (07:59)
[2023-12-18] MEDS: Celecoxib 100 MG Capsule PO (08:00)
[2023-12-18] MEDS: Sertraline 50 MG Tablet 25 MG PO (08:00)
[2023-12-18] MEDS: Multivitamins,Therapeutic Tablet 1 TABLET PO (08:00)
[2023-12-18] MEDS: TIMOLOL OPHTHALMIC ×2 (08:02→22:23)
[2023-12-18] MEDS: BRIMONIDINE TARTRATE OPHTHALMIC ×2 (08:02→22:23)
[2023-12-18] MEDS: Ezetimibe 10 MG Tablet PO (08:08)
[2023-12-18 08:56] VITALS: BP 128/67; PULSE 83; RESP 16; TEMP 36.7; O2SAT 94
[2023-12-18 12:31] LABS: Bedside Glucose 140 mg/dL (74-106)
[2023-12-18 17:27] LABS: Bedside Glucose 190 mg/dL (74-106)
[2023-12-18 19:43] VITALS: BP 144/70; PULSE 82; RESP 16; TEMP 36.2; O2SAT 94
[2023-12-18 22:00] VITALS: PULSE 82; RESP 16; O2SAT 94
[2023-12-18] MEDS: Doxycycline 100 MG CAPSULE PO (22:23)
[2023-12-18 23:24] LABS: Bedside Glucose 146 mg/dL (74-106)
[2023-12-19] MEDS: Enoxaparin 40 MG/0.4 ML Syringe SC (06:08)
[2023-12-19] MEDS: Arthritis Pain Compound 60 CLICK TUBE TOPICAL ×3 (06:08→21:31)
[2023-12-19] MEDS: Acetaminophen 500 MG Tablet 1000 MG PO ×3 (06:09→21:32)
[2023-12-19 07:15] LABS: Bedside Glucose 160 mg/dL (74-106)
[2023-12-19] MEDS: metFORMIN HCl 500 MG Tablet PO (07:53)
[2023-12-19] MEDS: Multivitamins,Therapeutic Tablet 1 TABLET PO (07:53)
[2023-12-19] MEDS: Cholecalciferol (VIT D3) 25 MCG TABLET (1,000 UNITS) PO (07:53)
[2023-12-19] MEDS: Aspirin 81 MG TAB.CHEW PO (07:54)
[2023-12-19 08:22] VITALS: BP 147/69; PULSE 84; RESP 17; TEMP 36.6; O2SAT 93
[2023-12-19] MEDS: TIMOLOL OPHTHALMIC ×2 (09:57→21:31)
[2023-12-19] MEDS: BRIMONIDINE TARTRATE OPHTHALMIC ×2 (09:57→21:31)
[2023-12-19] MEDS: Doxycycline 100 MG CAPSULE PO ×2 (09:58→21:31)
[2023-12-19] MEDS: Losartan Potassium 25 MG Tablet PO (09:58)
[2023-12-19] MEDS: Celecoxib 100 MG Capsule PO (09:58)
[2023-12-19] MEDS: Lidocaine 5% Patch 1 PATCH TOPICAL (09:59)
[2023-12-19] MEDS: Sertraline 50 MG Tablet 25 MG PO (10:01)
[2023-12-19] MEDS: Ezetimibe 10 MG Tablet PO (10:01)
[2023-12-19 11:59] LABS: Bedside Glucose 138 mg/dL (74-106)
[2023-12-19 17:42] LABS: Bedside Glucose 139 mg/dL (74-106)
[2023-12-19 19:05] VITALS: BP 131/67; PULSE 80; RESP 16; TEMP 36.9; O2SAT 95
[2023-12-20 00:25] LABS: Bedside Glucose 156 mg/dL (74-106)
[2023-12-20] MEDS: Enoxaparin 40 MG/0.4 ML Syringe SC (05:45)
[2023-12-20] MEDS: Acetaminophen 500 MG Tablet 1000 MG PO ×3 (05:45→22:45)
[2023-12-20] MEDS: Arthritis Pain Compound 60 CLICK TUBE TOPICAL ×3 (05:45→22:44)
[2023-12-20 07:15] LABS: Bedside Glucose 143 mg/dL (74-106)
[2023-12-20 07:37] VITALS: BP 119/52; PULSE 76; RESP 17; TEMP 36.3; O2SAT 94
[2023-12-20] MEDS: Doxycycline 100 MG CAPSULE PO ×2 (08:51→22:45)
[2023-12-20] MEDS: Sertraline 50 MG Tablet 25 MG PO (08:51)
[2023-12-20] MEDS: Losartan Potassium 25 MG Tablet PO (08:51)
[2023-12-20] MEDS: Lidocaine 5% Patch 1 PATCH TOPICAL (08:51)
[2023-12-20] MEDS: metFORMIN HCl 500 MG Tablet PO (08:51)
[2023-12-20] MEDS: Multivitamins,Therapeutic Tablet 1 TABLET PO (08:51)
[2023-12-20] MEDS: Aspirin 81 MG TAB.CHEW PO (08:51)
[2023-12-20] MEDS: Ezetimibe 10 MG Tablet PO (08:51)
[2023-12-20] MEDS: Celecoxib 100 MG Capsule PO (08:52)
[2023-12-20] MEDS: BRIMONIDINE TARTRATE OPHTHALMIC ×2 (08:52→22:45)
[2023-12-20] MEDS: Cholecalciferol (VIT D3) 25 MCG TABLET (1,000 UNITS) PO (08:52)
[2023-12-20] MEDS: TIMOLOL OPHTHALMIC ×2 (08:52→22:45)
--- NOTE | 2023-12-20 11:16 | PCM.PROGNOTE ---
Subjective Subjective Day 2 of 7 for urinary tract infection/cystitis. Alison was seen on TEAM rounds today. Her dtr Malini participated by phone. All questions were answered to their satisfaction. Afebrile VSS-blood pressure the past 3 days has ranged from 119/52 to 147/69. Maintaining appropriate oxygen saturation on RA Oral intake - FOOD good FLUIDS fair to good The blood sugar record was reviewed. Blood sugars are under excellent control with no hypoglycemia. No blood sugars over 200 and most are less than 180 with rare exception and then it was 190. Discussed with nursing - no problems that need addressed Reviewed the THERAPY notes Medication list reviewed. Was started on Cozaar 25 mg daily last for mildly elevated blood pressure and to preserve kidney function. Denies dysuria, lightheadedness, chest pain, shortness of breath, cough, sore throat, nausea/vomiting/abdominal pain, calf pain. Objective Data Objective Data Vital Signs: Vital Signs Temp Pulse Resp BP Pulse Ox O2 Del Method FiO2 97.4 F L 76 17 119/52 L 94 Room Air 21 12/20/23 07:37 12/20/23 07:37 12/20/23 07:37 12/20/23 07:37 12/20/23 07:37 12/20/23 07:37 12/14/23 22:20 Oxygen Delivery Method Room Air Weight: 168 lb 3.015 oz Body Mass Index (BMI) 30.9 Intake & Output: Intake and Output for Last 24 Hours 12/18/23 12/19/23 12/20/23 22:59 23:59 23:59 Intake Total 540 / 540 Output Total 200 / 200 Balance 340 / 340 Lab / Micro Data 12/14/23 05:44 12/14/23 05:44 Labs: Laboratory Results - last 24 hr 12/19/23 11:41: POC Glucose 138 H 12/19/23 17:22: POC Glucose 139 H 12/19/23 21:48: POC Glucose 156 H 12/20/23 06:34: POC Glucose 143 H Micro: Microbiology 12/15/23 21:15 Urine Catheter - Catheter Urine Culture - Final Staphylococcus hominis hominis Physical Exam Const alert General Appearance: cooperative Resp normal respiratory effort and clear to auscultation bilaterally Resp Narrative: Able to speak in complete sentences. Effort and Inspection: Negative for tachypneic Cardio regular rate, regular rhythm, no murmurs and no gallops GI normal to inspection, nondistended, normoactive bowel sounds, soft to palpation and non-tender Extremity no calf tenderness Extremity Narrative: Akbar hose are in place. General Extremity: Negative for edema Skin General Skin Exam: no breakdown Rashes: no rashes Assessment & Plan Assessment/Plan (1) Physical debility: (2) Skull fracture without loss of consciousness: QUALIFIERS: Encounter type: subsequent encounter Fracture type: closed (3) Memory loss: (4) Diabetes mellitus, type 2: (5) Episodic recurrent vertigo: (6) Closed TBI (traumatic brain injury): (7) Carotid stenosis, non-symptomatic: PLAN: Plan 1. Continue therapy 2. BMP a.m. 3. Decrease Accu-Cheks to twice daily Charges/Coding Visit Charges Inpatient E&M: 60961 Subs Hosp L2
[2023-12-20 12:37] LABS: Bedside Glucose 135 mg/dL (74-106)
[2023-12-20 17:53] LABS: Bedside Glucose 129 mg/dL (74-106)
[2023-12-20 20:19] VITALS: BP 150/64; PULSE 86; RESP 15; TEMP 36.7; O2SAT 95
[2023-12-21] MEDS: Acetaminophen 500 MG Tablet 1000 MG PO ×3 (05:36→21:02)
[2023-12-21] MEDS: Enoxaparin 40 MG/0.4 ML Syringe SC (05:36)
[2023-12-21] MEDS: Arthritis Pain Compound 60 CLICK TUBE TOPICAL ×3 (05:36→21:03)
[2023-12-21 06:19] LABS: Bedside Glucose 111 mg/dL (74-106)
[2023-12-21 07:07] VITALS: BP 145/73; PULSE 81; RESP 18; TEMP 36.3; O2SAT 98
[2023-12-21] MEDS: Doxycycline 100 MG CAPSULE PO ×2 (08:03→21:02)
[2023-12-21] MEDS: Sertraline 50 MG Tablet 25 MG PO (08:03)
[2023-12-21] MEDS: Lidocaine 5% Patch 1 PATCH TOPICAL (08:03)
[2023-12-21] MEDS: Aspirin 81 MG TAB.CHEW PO (08:03)
[2023-12-21] MEDS: Ezetimibe 10 MG Tablet PO (08:03)
[2023-12-21] MEDS: Cholecalciferol (VIT D3) 25 MCG TABLET (1,000 UNITS) PO (08:04)
[2023-12-21] MEDS: Celecoxib 100 MG Capsule PO (08:04)
[2023-12-21] MEDS: metFORMIN HCl 500 MG Tablet PO (08:04)
[2023-12-21] MEDS: Multivitamins,Therapeutic Tablet 1 TABLET PO (08:04)
[2023-12-21] MEDS: Losartan Potassium 25 MG Tablet PO (08:04)
[2023-12-21] MEDS: BRIMONIDINE TARTRATE OPHTHALMIC ×2 (08:13→21:03)
[2023-12-21] MEDS: TIMOLOL OPHTHALMIC ×2 (08:13→21:03)
[2023-12-21 16:50] LABS: Bedside Glucose 188 mg/dL (74-106)
[2023-12-21 22:00] VITALS: BP 132/73; PULSE 86; RESP 16; TEMP 36.8; O2SAT 97
[2023-12-22] MEDS: Enoxaparin 40 MG/0.4 ML Syringe SC (04:31)
[2023-12-22] MEDS: Arthritis Pain Compound 60 CLICK TUBE TOPICAL ×3 (04:31→21:46)
[2023-12-22] MEDS: Acetaminophen 500 MG Tablet 1000 MG PO ×3 (04:32→21:47)
[2023-12-22 05:01] VITALS: BMI 31.1
[2023-12-22 05:53] LABS: Bedside Glucose 141 mg/dL (74-106)
[2023-12-22] MEDS: Lidocaine 5% Patch 1 PATCH TOPICAL (08:08)
[2023-12-22] MEDS: Losartan Potassium 25 MG Tablet PO (08:09)
[2023-12-22] MEDS: Aspirin 81 MG TAB.CHEW PO (08:09)
[2023-12-22] MEDS: metFORMIN HCl 500 MG Tablet PO (08:09)
[2023-12-22] MEDS: Celecoxib 100 MG Capsule PO (08:09)
[2023-12-22] MEDS: Cholecalciferol (VIT D3) 25 MCG TABLET (1,000 UNITS) PO (08:09)
[2023-12-22] MEDS: Ezetimibe 10 MG Tablet PO (08:09)
[2023-12-22] MEDS: Multivitamins,Therapeutic Tablet 1 TABLET PO (08:09)
[2023-12-22] MEDS: Doxycycline 100 MG CAPSULE PO ×2 (08:09→21:45)
[2023-12-22] MEDS: Sertraline 50 MG Tablet 25 MG PO (08:10)
[2023-12-22] MEDS: TIMOLOL OPHTHALMIC ×2 (08:20→21:46)
[2023-12-22] MEDS: BRIMONIDINE TARTRATE OPHTHALMIC ×2 (08:20→21:46)
[2023-12-22 09:16] VITALS: BP 121/53; PULSE 83; RESP 17; TEMP 36.3; O2SAT 96
--- NOTE | 2023-12-22 15:03 | PCM.PROGNOTE ---
Subjective Subjective Afebrile VSS Maintaining appropriate oxygen saturation on RA Oral intake - FOOD good FLUIDS good Blood sugars are well-controlled with no hypoglycemia. Discussed with nursing - no problems that need addressed Reviewed the THERAPY notes Medication list reviewed. Alison is complaining of feeling tired today and is also complaining of diarrhea. She associates this with metformin but she is only taking 500 mg once daily. She is also taking doxycycline for Staph hominis cystitis and this may be a cause of some GI disturbance. She has not been taking the senna. Diarrhea is not reflected in the nursing documentation. Alison denies epigastric pain, heartburn, nausea, vomiting and abdominal pain. Joint pains are better with the addition of Celebrex 100 mg daily to her drug regimen. Objective Data Objective Data Vital Signs: Vital Signs Temp Pulse Resp BP Pulse Ox O2 Del Method FiO2 97.3 F L 83 17 121/53 H 96 Room Air 21 12/22/23 09:16 12/22/23 09:16 12/22/23 09:16 12/22/23 09:16 12/22/23 09:16 12/22/23 09:16 12/14/23 22:20 Oxygen Delivery Method Room Air Weight: 170 lb 3.2 oz Body Mass Index (BMI) 31.1 Intake & Output: Intake and Output for Last 24 Hours 12/20/23 12/21/23 12/22/23 23:59 23:59 23:59 Intake Total 1860 / 1860 1200 / 1200 960 / 960 Output Total 1650 / 1650 800 / 1500 1800 / 1800 Balance 210 / 210 400 / -300 -840 / -840 Lab / Micro Data 12/14/23 05:44 12/14/23 05:44 Labs: Laboratory Results - last 24 hr 12/21/23 16:31: POC Glucose 188 H 12/22/23 05:34: POC Glucose 141 H Micro: Microbiology 12/15/23 21:15 Urine Catheter - Catheter Urine Culture - Final Staphylococcus hominis hominis Physical Exam Const alert and no apparent distress General Appearance: cooperative HEENT Mouth: dry mucous membranes Resp normal respiratory effort and clear to auscultation bilaterally Resp Narrative: Able to speak in complete sentences. Effort and Inspection: Negative for tachypneic Cardio regular rate, regular rhythm, no murmurs and no gallops GI normal to inspection, nondistended, normoactive bowel sounds, soft to palpation and non-tender Extremity no calf tenderness Extremity Narrative: Akbar hose are in place. General Extremity: Negative for edema Skin General Skin Exam: no breakdown Rashes: no rashes Assessment & Plan Assessment/Plan (1) Physical debility: (2) Skull fracture without loss of consciousness: QUALIFIERS: Encounter type: subsequent encounter Fracture type: closed (3) Memory loss: (4) Diabetes mellitus, type 2: (5) Episodic recurrent vertigo: (6) Closed TBI (traumatic brain injury): (7) Cystitis: PLAN: Due to Staph hominis which may be a contaminant however it was a straight cath specimen that was sent to the lab. PLAN: Plan 1. Continue therapy 2. Continue metformin 3. Finish 7 days of treatment for cystitis 4. BMP and CBC. Charges/Coding Visit Charges Inpatient E&M: 19798 Subs Hosp L1
[2023-12-22 17:35] LABS: Bedside Glucose 110 mg/dL (74-106)
[2023-12-22 21:50] VITALS: BP 134/67; PULSE 86; RESP 16; TEMP 36.6; O2SAT 95
[2023-12-22 22:17] LABS: Bedside Glucose 148 mg/dL (74-106)
--- NOTE | 2023-12-23 03:19 | NURSING ---
Reviewed and agree with Carmen CORDOVA, documentation and assessment charting.
[2023-12-23 05:35] LABS: Hematocrit 35.9 % (37-47); Mean Corp Hgb Conc 33.4 g/dL (32-36); Mean Corpuscular Volume 89.8 fL (81-99); Platelet Count 221 K/mm3 (150-450); RBC Distribution Width CV 12.7 % (11.6-14.6); RBC Distribution Width SD 42.2 fl (35.1-43.9); White Blood Count 4.9 K/mm3 (4.4-11.0)
[2023-12-23 05:58] LABS: Anion Gap 9 (5-15); BUN 14 mg/dL (7-18); BUN/Creat Ratio 27.1 RATIO (10-20); Calcium,Total 8.7 mg/dL (8.5-10.1); Chloride 101 mmol/L (98-107); Creatinine, Serum 0.52 mg/dL (0.55-1.02); EST Glomerular Filtration Rate 120 mL/min (>60); Est Glom Filt Rate - Afr Amer 145 mL/min (>60); Estimated Creatinine Clearance 50.36 ml/min; Glucose 118 mg/dL (74-106); Sodium Level 134 mmol/L (136-145)
[2023-12-23] MEDS: Enoxaparin 40 MG/0.4 ML Syringe SC (06:21)
[2023-12-23] MEDS: Arthritis Pain Compound 60 CLICK TUBE TOPICAL ×3 (06:22→19:39)
[2023-12-23] MEDS: Acetaminophen 500 MG Tablet 1000 MG PO ×3 (06:22→19:39)
[2023-12-23 06:56] LABS: Bedside Glucose 124 mg/dL (74-106)
[2023-12-23] MEDS: Doxycycline 100 MG CAPSULE PO ×2 (07:52→19:39)
[2023-12-23] MEDS: Celecoxib 100 MG Capsule PO (07:52)
[2023-12-23] MEDS: Cholecalciferol (VIT D3) 25 MCG TABLET (1,000 UNITS) PO (07:52)
[2023-12-23] MEDS: metFORMIN HCl 500 MG Tablet PO (07:52)
[2023-12-23] MEDS: Ezetimibe 10 MG Tablet PO (07:52)
[2023-12-23] MEDS: Losartan Potassium 25 MG Tablet PO (07:52)
[2023-12-23] MEDS: Sertraline 50 MG Tablet 25 MG PO (07:52)
[2023-12-23] MEDS: Aspirin 81 MG TAB.CHEW PO (07:52)
[2023-12-23] MEDS: Multivitamins,Therapeutic Tablet 1 TABLET PO (07:52)
[2023-12-23] MEDS: Lidocaine 5% Patch 1 PATCH TOPICAL (07:52)
[2023-12-23] MEDS: BRIMONIDINE TARTRATE OPHTHALMIC ×2 (07:53→19:39)
[2023-12-23] MEDS: TIMOLOL OPHTHALMIC ×2 (07:53→19:39)
[2023-12-23 09:16] VITALS: BP 130/61; PULSE 85; RESP 16; TEMP 37.1; O2SAT 95
--- NOTE | 2023-12-23 13:03 | CASEMGMT ---
Addendum entered by Bhavna Paige 12/23/23 14:55: Dtr provided HHC choices. 1. [facility], 2. [facility], 3. , 4. [facility], [facility] - SW secured. Addendum entered by Bhavna Paige 12/23/23 13:25: Dr also requested a referral to driving rehab in [place]. [facility] provided information to pt for dtr to call and schedule. SW also faxed referral. Original Note: Social Work IDT met with patient and family via conference call for Team meeting. Discussed patient's progress in PT/OT/ST/SN. Educated to Medicare approval of 13 days with DC 12/25. However, pt is needing new overnight O2, which ordering and testing need completed within 48 hours. [facility] educated to these guidelines and offered for pt to DC 12/24 or 12/26, to adhere to proper testing timeframes. Pt and dtr prefer 12/24 since dtr is off work. IDT recommending HHC PT/OT/ST/SN; no other DME needs. SW offered skilled HHC agencies in preferred area with quality and resource data via [employer]. Dtr agreed for a text link - link sent. No other DME needs beside overnight O2. Pt to follow up outpatient with a sleep study as well. Plan: DC home alone 12/24, HHC PT/OT/ST/SN, overnight O2 [id number]
--- NOTE | 2023-12-23 16:41 | PN_ITS ---
Subjective Subjective Alison was seen on team rounds today. Her daughter Malini participated by phone. Afebrile VSS-blood pressure has ranged from 121/53 to 145/73 over the past 48 hours. Heart rate is in the 80s and regular. Maintaining appropriate oxygen saturation on RA Oral intake - FOOD good FLUIDS better. She had 2 L of fluid intake yesterday and today so far she has had 1420. The blood sugar record was reviewed and the blood sugars are well-controlled on Victoza and 500 mg of Glucophage daily. There is no hypoglycemia. Discussed with nursing - no problems that need addressed Reviewed the THERAPY notes Medication list reviewed. All lab drawn this morning was personally reviewed. Hemoglobin is stable at 12. The white blood cell count is normal and platelets are also within normal limits. MCV and MCH are both normal. Sodium is 134 which is mildly decreased. Chloride is normal at 101 and the serum bicarb is 24. The BUN is 14 with a creatinine of 0.52 which is stable. Calcium is normal. Alison is complaining of diarrhea and she blames this on Glucophage. After careful review of the nursing notes she is not having diarrhea but is having regular bowel movements. She has had diarrhea with Glucophage in the past but at that time she was on 1000 mg p.o. twice daily. She has been on doxycycline for Staph hominis cystitis and this may be causing some softer stool. She denies abdominal pain, nausea, vomiting, flank pain, chest pain, shortness of breath, palpitations and calf pain. She has not complained of dizziness in several days however when I directly asked her about dizziness she tells me that when she first jumps up out of bed in the morning she is lightheaded and sometimes when she walks quickly into the bathroom she also feels lightheaded. She denies vertigo. Objective Data Objective Data Vital Signs: Vital Signs Temp Pulse Resp BP Pulse Ox O2 Del Method FiO2 98.8 F 85 16 130/61 H 95 Room Air 21 12/23/23 09:16 12/23/23 09:16 12/23/23 09:16 12/23/23 09:16 12/23/23 09:16 12/23/23 09:16 12/14/23 22:20 Oxygen Delivery Method Room Air Weight: 170 lb 3.2 oz Body Mass Index (BMI) 31.1 Intake & Output: Intake and Output for Last 24 Hours 12/21/23 12/22/23 12/23/23 23:59 23:59 23:59 Intake Total 1200 / 1200 2009 1420 / 1420 Output Total 800 / 1500 3500 / 3700 1350 / 1350 Balance 400 / -300 -1490 / -1690 70 / 70 Lab / Micro Data 12/23/23 05:21 12/23/23 05:21 Labs: Laboratory Results - last 24 hr 12/22/23 17:14: POC Glucose 110 H 12/22/23 21:43: POC Glucose 148 H 12/23/23 05:21: WBC 4.9, RBC 4.00 L, Hgb 12.0, Hct 35.9 L, MCV 89.8, MCH 30.0, MCHC 33.4, RDW Std Deviation 42.2, RDW Coeff of Jordan 12.7, Plt Count 221, MPV 10.0, Sodium 134 L, Potassium 4.0, Chloride 101, Carbon Dioxide 24.0, Anion Gap 9, BUN 14, Creatinine 0.52 L, Estim Creat Clear Calc 50.36, Est GFR (MDRD) Af Amer 145, Est GFR (MDRD) Non-Af 120, BUN/Creatinine Ratio 27.1 H, Glucose 118 H, Calcium 8.7 12/23/23 06:24: POC Glucose 124 H Micro: Microbiology 12/15/23 21:15 Urine Catheter - Catheter Urine Culture - Final Staphylococcus hominis hominis Physical Exam Const alert and no apparent distress General Appearance: cooperative Orientation / Consciousness: Negative for confused HEENT HEENT Narrative: Having a hard time hearing even with the hearing aids in. Mouth: dry mucous membranes Neck supple Resp normal respiratory effort and clear to auscultation bilaterally Resp Narrative: Able to speak in complete sentences. Effort and Inspection: Negative for tachypneic Cardio regular rate, regular rhythm, no murmurs and no gallops GI normal to inspection, nondistended, normoactive bowel sounds, soft to palpation and non-tender Extremity no calf tenderness Extremity Narrative: Akbar hose are in place. General Extremity: Negative for edema Skin General Skin Exam: no breakdown Rashes: no rashes Psych Psych Narrative: Tolerating Sertraline without SE. Affect is not flat. She is appropriate and calm. Tells me that she is less anxious than at admission to rehab. Makes good eye contact when we are talking. Seems to have more energy. Appearance: appropriate Assessment & Plan Assessment/Plan (1) Physical debility: (2) Skull fracture without loss of consciousness: QUALIFIERS: Encounter type: subsequent encounter Fracture type: closed (3) Memory loss: (4) Diabetes mellitus, type 2: (5) Episodic recurrent vertigo: (6) Closed TBI (traumatic brain injury): (7) Cystitis: PLAN: Plan 1. Continue therapy 2. Add lactobacillus 3 times daily to her current drug regimen 3. Patient is now agreeable to using a pill organizer to take her medications and her daughter Malini will supervise the filling of the pill organizer for at least the first couple weeks. 4. Patient was instructed not to drive until she attends the driving school at [facility] in [place]. Will write an order for her to be seen at discharge. 5. She has elected to be discharged on Wednesday. Will do an overnight trending pulse ox tonight to determine eligibility for home O2 until she has her sleep study going forward. 6. Will need a front wheeled walker at discharge. She is unable to use a cane safely and requires a walker for ambulation/balance. Charges/Coding Visit Charges Inpatient E&M: 58226 Subs Hosp L2
[2023-12-23 16:47] VITALS: BP 130/59; BP 143/75; BP 146/66; PULSE 86; PULSE 88; PULSE 89
[2023-12-23 16:50] LABS: Bedside Glucose 138 mg/dL (74-106)
[2023-12-23 19:46] VITALS: BP 125/62; PULSE 81; RESP 17; TEMP 36.1; O2SAT 96
[2023-12-23 22:08] VITALS: PULSE 79; O2SAT 95
[2023-12-24 03:23] LABS: Bedside Glucose 120 mg/dL (74-106)
[2023-12-24] MEDS: Enoxaparin 40 MG/0.4 ML Syringe SC (05:28)
[2023-12-24] MEDS: Acetaminophen 500 MG Tablet 1000 MG PO ×3 (05:28→21:55)
[2023-12-24] MEDS: Arthritis Pain Compound 60 CLICK TUBE TOPICAL ×3 (05:28→21:55)
[2023-12-24 08:31] VITALS: BP 133/77; PULSE 85; RESP 14; TEMP 36.2; O2SAT 95
[2023-12-24] MEDS: metFORMIN HCl 500 MG Tablet PO (09:11)
[2023-12-24] MEDS: Doxycycline 100 MG CAPSULE PO ×2 (09:11→21:55)
[2023-12-24] MEDS: Multivitamins,Therapeutic Tablet 1 TABLET PO (09:11)
[2023-12-24] MEDS: Ezetimibe 10 MG Tablet PO (09:11)
[2023-12-24] MEDS: Sertraline 50 MG Tablet 25 MG PO (09:11)
[2023-12-24] MEDS: Losartan Potassium 25 MG Tablet PO (09:11)
[2023-12-24] MEDS: Cholecalciferol (VIT D3) 25 MCG TABLET (1,000 UNITS) PO (09:12)
[2023-12-24] MEDS: Aspirin 81 MG TAB.CHEW PO (09:12)
[2023-12-24] MEDS: Celecoxib 100 MG Capsule PO (09:12)
[2023-12-24] MEDS: Lidocaine 5% Patch 1 PATCH TOPICAL (09:13)
[2023-12-24] MEDS: TIMOLOL OPHTHALMIC ×2 (09:14→21:55)
[2023-12-24] MEDS: BRIMONIDINE TARTRATE OPHTHALMIC ×2 (09:14→21:55)
--- NOTE | 2023-12-24 12:06 | DS.PCM_ITS ---
Providers Date of Admission: 12/13/23 Date of Discharge: 12/25/23 Primary Care Physician: Dr. Tsering Nichols none Reason For Visit: DEBILITY DUE TO CLOSED SKULL FRACTURE WITH TBI Diagnosis Discharge Diagnosis (1) Physical debility: Status: Acute Code(s): R53.81 - Other malaise (2) History of recent fall: Status: Acute Code(s): Z91.81 - History of falling Plan: Ground-level fall (3) Skull fracture without loss of consciousness: Status: Acute Code(s): S02.91XA - Unspecified fracture of skull, initial encounter for closed fracture Qualifiers: Encounter type: subsequent encounter Fracture type: closed Plan: Due to a ground level fall. (4) Closed TBI (traumatic brain injury): Status: Acute Code(s): S06.9XAA - Unspecified intracranial injury with loss of consciousness status unknown, initial encounter Qualifiers: Encounter type: subsequent encounter Loss of consciousness presence/duration: without LOC Qualified Code(s): S06.9X0D - Unspecified intracranial injury without loss of consciousness, subsequent encounter (5) Memory loss: Status: Acute Code(s): R41.3 - Other amnesia Plan: Multifactorial. Suspect depression and also possible FABIO. Had an abnormal overnight trending pulse ox and she is going to have a sleep study at [facility] going forward. (6) Cystitis: Status: Resolved Code(s): N30.90 - Cystitis, unspecified without hematuria Plan: Due to Staph Hominis which is usually a contaminant however, it was a cath specimen show she was treated with 7 days of doxycycline. (7) Diabetes mellitus, type 2: Status: Acute Code(s): E11.9 - Type 2 diabetes mellitus without complications Plan: Well controlled at [place] on Victoza and Glucophage 500 mg Q AM. (8) Vitamin D deficiency: Status: Acute Code(s): E55.9 - Vitamin D deficiency, unspecified Plan: Started on a Vitamin D supplement. Recommend a BMD if she has not had one in the past 2 years. (9) Carotid stenosis, non-symptomatic: Status: Acute Code(s): I65.29 - Occlusion and stenosis of unspecified carotid artery Qualifiers: Laterality: bilateral Qualified Code(s): I65.23 - Occlusion and stenosis of bilateral carotid arteries Plan: < 50% stenosis but, the plaques in the left carotid was ulcerated. She was seen by Vascular surgery at [place] and they recommended ASA and continued statin therapy only. would repeat a carotid US in 1 year to follow the stenosis. (10) Episodic lightheadedness: Status: Acute Code(s): R42 - Dizziness and giddiness Plan: Orthostatics were + at admission to rehab and she had an elevated BUN/CREAT ratio and hyponatremia in the ED at the time of the fall. Spironolactone has been discontinued and on 12/23/23 she was not orthostatic. Edema in the ankles is controlled with SVETA hose. She has had no vertigo while on rehab. Avoid Antivert due to anticholinergic properties and risk for orthostatic hypotension and increased falls. Avoid medications on the Beer's list if at all possible. (11) Hyperlipidemia: Status: Acute Code(s): E78.5 - Hyperlipidemia, unspecified Plan: Continue statin. (12) Lumbar canal stenosis: Status: Chronic Code(s): M48.061 - Spinal stenosis, lumbar region without neurogenic claudication Plan: CT of the lumbar spine showed multilevel spondylitic changes with at least moderate canal stenosis at L3-L4. She has not been c/o back pain since being started on Celebrex 100 mg daily. She also has linda pain in her knees. HGB is stable and so is the creat. she has not had epigastric pain, nausea or heartburn. She has not had to have Famotidine since one day after admission to rehab (12/15/23). Plan 1. Discharge home on 12/25/2023 with home health care for PT/OT/ST/SN. Her daughter Malini will help to manage medications and finances. 2. Will have the sleep lab call her daughter Malini to schedule an overnight sleep study following discharge. 3. No DME needs-she already has a wheeled walker at home. 4. Follow-up with Dr. Nichols within 2 weeks post DC. 5. RX's faxed to [facility] in [place]. Medications at Discharge Home Medications acetaminophen 500 mg capsule 1,000 mg PO Q8H PRN pain 12/13/23 aspirin 81 mg capsule 81 mg PO DAILY heart health 12/13/23 brimonidine 0.2 %-timolol 0.5 % eye drops drp ophthalmic (eye) BID glaucoma 12/13/23 diclofenac sodium 1 % topical gel topical BID pain to knee 12/13/23 multivitamin (Daily Multi-Vitamin tablet) 1 tab PO DAILY supplement 12/13/23 liraglutide 0.6 mg/0.1 mL (18 mg/3 mL) subcutaneous pen injector (Victoza 2-Morgan) 0.3 mg subcut DAILY glucose 12/14/23 acidophilus 25 million cell-pectin, citrus 100 mg tablet 1 tab PO BID #60 tabs 12/24/23 celecoxib 100 mg capsule 100 mg PO DAILY #30 caps 12/24/23 cholecalciferol (vitamin D3) 25 mcg (1,000 unit) tablet 25 mcg PO DAILYCM #30 tabs 12/24/23 ezetimibe 10 mg tablet 10 mg PO DAILY cholesterol inhibitor #30 tabs 12/24/23 famotidine 20 mg tablet 20 mg PO DAILY PRN nausea/dyspepsia #30 tabs 12/24/23 losartan 25 mg tablet 25 mg PO DAILY #30 tabs 12/24/23 metformin 500 mg tablet 500 mg PO DAILYCM #30 tabs 12/24/23 sertraline 50 mg tablet 25 mg (1/2 x 50 mg) PO DAILY #30 tabs 12/24/23 Hospital Course Operations None Procedures None Summary of Care Provided Minutes Spent on Discharge: 40 Hospital Course: ALISON DAMICO, is a 83 YO F with a PMH of DM II, HLD, BPPV (X4 years ago.....r esolved with vestibular training), DJD, presbycusis (has bilateral hearing aids), glaucoma, chronic back pain, gallbladder dysfunction and hx of breast CA who had a ground level fall on 12/09/23. She struck her head but, she did not lose consciousness. She sustained a non-displaced occipital fx of the skull. She was admitted to [facility]. C spine imaging was negative for fracture or dislocation. CT of C/A/P showed endometrial thickening measuring up to 9 mm with no other pathology. She has had an endometrial bx that was negative for pathology. CTA of the neck on 12/10/2023 showed bilateral atherosclerotic disease up to 50% stenosis. There was ulceration of the plaque in the Left carotid. CT scan of the lumbar spine showed multilevel spondylitic changes with at least moderate spinal canal stenosis at L3-L4. Vascular surgery was consulted due to the ulcerated Plaque in the L carotid and they recommended 81 mg of aspirin daily and a high intensity statin for risk factor modification. Echocardiogram done at the previous hospital showed an ejection fraction of 55 to 60% with an impaired relaxation pattern consistent with left ventricular impaired relaxation. The aortic valve was mildly thickened with no evidence of aortic stenosis. The mitral valve was also mildly thickened and she had a trace of tricuspid and mitral regurgitation. Lab at admission to showed a low sodium at 132 and low chloride at 95. The BUN was 10 with a creatinine of 0.42.BUN/creatinine ratio was > 20 consistent with IV volume depletion. Glucose was elevated at 167. TSH was normal. Hemoglobin A1c was 7.3%. She has on Victoza for the past 3 years and takes 1.8 mg weekly. She was also taking glimepiride. She was seen by the gerontologist at [place] who recommended discontinuing glimepiride due to risk of hypoglycemia in the elderly. While at she was seen by PT/OT and acute rehab was recommended. Alison was transferred to the acute inpt rehab unit at [facility] on 12/13/23 for 3 hours of therapy daily to restore function/independence at or near her level prior to the fall. Orthostatic vital signs at presentation to acute rehab were consistent with intravascular volume depletion/dehydration. Spironolactone was discontinued and she was placed in SVETA hose which has controlled the edema in her ankles very well. 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 Orthostatics were repeated 2 days prior to discharge and they were negative for orthostatic hypotension. Blood sugars were mildly elevated above 200 at times on Victoza alone and she was started on Glucophage 500 mg daily in the a.m. and the blood sugars are well-controlled at discharge. Patient has been on a much higher dose of Glucophage in the past and had diarrhea. She wanted to blame the Glucophage because she had some loose stools but she was taking tetracycline at the time for a Staph hominis urinary tract infection. A probiotic was added to her drug regimen and the diarrhea resolved. I suspect that she has some irritable bowel syndrome because she has alternating diarrhea and constipation. She was sometimes having diarrhea at home prior to the Glucophage being added. She has not had any frequent stooling but, stool was softer than what she considers her normal. Alison was c/o low back pain even though she had a lidocaine patch. CT of the lumbar spine showed a subacute vertebral fracture which may have been related to the fall. She was started on Celebrex 100 mg p.o. daily and has been tolerating this well with no heartburn, epigastric pain, nausea or other a bdominal discomfort. Hemoglobin is stable and normal and the creatinine is also stable. At the time of DC she is not c/o back pain or pain in her knees. She initially had some urinary incontinence and a UA was checked. The UA was obtained via straight cath. She had 0-5 white blood cells per high-power field with +1 bacteria and the culture grew 80,000-100,000 colonies of Staphylococcus hominis. This is generally a contaminant however since it was a cath specimen and she had urgent continence we elected to treat with doxycycline 100 mg twice daily x 7 days. Urge incontinence resolved. She denies dysuria at the time of discharge. A comment of osteopenia was made on the x-ray reports obtained from the previous hospital and a vitamin D level was checked and it was low at 23. Alison told me that she had previously been taking a vitamin D supplement but for some reason she was not taking it at the time she was admitted. She was started on a vitamin D supplement. She also tells me that she has not had a bone mineral density for approximately 4 years and I recommend that she have a BMD in the near future to see if she may need additional treatment for osteoporosis. An overnight trending pulse ox was obtained shortly after admission and Alison had desaturation below 89% with 2 desaturation events (a oxygen saturation less than 88% for longer than 60 seconds.) She was placed on oxygen anytime she was sleeping. An overnight trending pulse ox was repeated prior to discharge and the percentage of the monitoring. When the pulse ox was less than 90% was down to 1.18%. She had no desaturation events. She was not sent home with home oxygen however she will have a sleep study going forward and the sleep lab will be calling her daughter Malini to schedule. Alison and her daughter admitted that she had had some problems with memory even prior to the fall. The is he admitted to feeling depressed at times and anxious. She was napping during the day and falling asleep at night in front of the television. She would then get up, have a snack and go to bed around 2 AM. She would sleep till 11 or 12 in the morning. She was started on sertraline 25 mg daily on 12/17/2023 and she is tolerating this well. She is doing better and is much more alert during the day prior to DC. she is no longer napping throughout the day and she is sleeping well at night. Appetite is good. She tells me that she feels less anxious. Alison did quite well with therapy. She is supervision/set up for eating, grooming, bathing, upper body dressing, lower body dressing, toilet transfer and toileting and tub/shower transfer. She was made independent in her room 48 hours prior to discharge and is doing well without any loss of balance events. She has ambulated up to 330 feet with a front wheeled walker at supervision and up to 410 feet at contact-guard assist. She is able to ascend/descend two 6 inch steps and three 4 inch steps with 1 handrail at light contact-guard assist. This will allow her to enter her home. She is able to do 12 sit to stands in 30 seconds pushing up with the bilateral lower extremities at standby assist. She has been working daily with the speech therapist and cognition is improving however she will need continued speech therapy at home. We are recommending that her daughter Malini assist with setting up her pillboxes and managing f inances for at least a few weeks post discharge. Alison denies headaches, vertigo, chest pain, shortness of breath, cough, nausea/vomiting/epigastric pain/abdominal pain, dysuria and calf tend erness at the time of discharge. She has an appointment to follow-up with Dr. Tsering Nichols on January 12. Lab done on 12/23/2023 showed a normal white blood cell count, normal hemoglobin at 12 and normal platelets. She is normochromic and normocytic. The RDW is normal. Sodium is 134 and she is asymptomatic. The BUN is 14 with a creatinine of 0.52. BUN/creatinine ratio is elevated at 27.1 but Alison has decreased fluid intake and we are constantly reminding her to increase her fluid intake. She was advised not to drink caffeinated beverages due to the diuretic effects of caffeine and due to increased bladder irritability and urge incontinence with caffeine intake. Alison was discharged home on 12/25/23. [facility] has been arranged for PT/OT/ST/SN. she did not need any DME....she has a cane and a walker at home. she was advised to continue using the walker until she is told by the [facility] therapist that she is OK to use a cane. She and her dtr were instructed that Alison will not be allowed to drive until she is evaluated at by the Certified Insolvency Practitioner vocational rehabilitation consultant at the [facility] facility in [place]. She still has some lightheadedness (primarily upon arising in the AM) and she has had a TBI. She was given information about the program. Physical Exam Const alert, oriented x3 and no apparent distress General Appearance: cooperative Orientation / Consciousness: Negative for confused HEENT HEENT Narrative: She is very [place], even with her hearing aids in. This likely contributes to memory difficulties. She plans on following up with the volleyball referee who prescribed her hearing aids following DC. No JVD and no carotid bruits. Mouth: dry mucous membranes Eyes PERRL and EOMs intact bilaterally Eyes Narrative: There is no discharge from the eyes and no mattering of the eyelashes. Conjunctiva is normal and there is no scleral icterus. Neck no lymphadenopathy, supple, no JVD and no carotid bruits General: trachea midline Resp Resp Narrative: She has some coarse crackles in the R base that persist after a few deep breaths. She may have some scarring in the R lung base. No wheezing. Excellent air exchange, no tachypnea no conversational dyspnea. Cardio regular rate, regular rhythm, S1 normal heart sound, S2 normal heart sound, no rub and no gallops Cardio Narrative: She has a soft systolic ejection murmur heard best at the second right intercostal space and likely secondary to aortic valve sclerosis/thickening. GI normal to inspection, nondistended, normoactive bowel sounds, soft to palpation and non-tender GI Narrative: No guarding with palpation Extremity no calf tenderness Extremity Narrative: She has a trace of edema in both ankles but no pretibial edema. Peripheral edema is secondary to venous insufficiency and is well-controlled with compression stockings. Skin General Skin Exam: no breakdown Rashes: no rashes Neuro CN's II-XII intact bilaterally, no focal motor deficits and no sensory deficits noted Coordination / Balance: ptnrns-bk-htwy test normal and fslo-qm-qodo test normal Speech: speech normal Psych affect normal Psych Narrative: She is much more alert at discharge than she was at admission. No longer napping throughout the day. Makes good eye contact with me when we are speaking and is sleeping well at night with a good appetite. Appearance: appropriate Attitude: No agitated Activity / Motor Behavior: Negative for restless Mood & Affect: Negative for flat affect Weight / BMI Weight Weight: 170 lb 3.2 oz Body Mass Index (BMI) 31.1 ABG / Lab / Microbiology Data 12/23/23 05:21 12/23/23 05:21 Laboratory: Laboratory Results - last 24 hr 12/23/23 16:29: POC Glucose 138 H 12/24/23 03:04: POC Glucose 120 H Microbiology: Microbiology 12/15/23 21:15 Urine Catheter - Catheter Urine Culture - Final Staphylococcus hominis hominis Meaningful Use Info Meaningful Use Diagnoses (Choose all that apply): None applicable Discharge Plan Admission Admit Date/Time: 12/13/23 19:02 Primary Reason for Your Visit: TBI with closed skull fracture. Attending Provider: Nena Stacy Instructions Patient Instructions: Dealing With the Stress of ..., TBI Improving Cognition Post, TBI Caring For Person, TBI and Depression, TBI and Anxiety, Understanding Anxiety Disorders Additional Instructions / Restrictions: 1. You had a serious head injury and not only did you sustain a skull fracture in the fall but, you also have a traumatic brain injury, Called TBI. I have given you some literature to read about TBI and some of the symptoms and things you can do to help with cognition. You have made progress with speech therapy but, you are still having some issues with memory. We recommend you use a pill organizer for your medications and for at least the next few weeks you set up the pill boxes with [facility] to make sure that you are getting the medications as prescribed and at the correct times. you may want to set an alarm on your phone to remind you when you are to take your medications so that you do not miss any meds during the day. 2. You are walking much better with the wheeled walker and you have really picked up your pace. I have not noticed you having any loss of balance when walking recently. I think you will be fine home alone. I do recommend that you let Malini help you with medication management and finances for now. You will be getting continued PT/OT/ST/skilled nurse when you get home. 3. the second overnight pulse ox we did was improved over the first. The oxygen still drops at times but, there was no desaturation < 88% lst longer than a minute. I do not think you will need oxygen at home. I do think you should follow through with the sleep study. 4. Avoid taking sleep aids such as Benadryl, Ativan, and Ambien. You can take Melatonin but, the max dose for someone your age is 3 mg. these medications contribute to increased falls and confusion. 5. Your blood sugars are well controlled with Victoza and Glucophage 500 mg once a day. I do not think the Glucophage is causing diarrhea. I think you may have irritable bowel syndrome. We have started you on a probiotic to see if that will help regulate the stool better. Irritable bowel, also called IBS, can cause diarrhea and constipation. sometimes the diarrhea and constipation alternate. It tends to become more active when people are anxious. You told me that you feel anxious. I think you have also had some problems with depression. Untreated depression can cause problems with memory. It also causes you to feel more tired, less motivated and less interested in doing fun things. Generally people do not have JUST anxiety or just depression. They have a combination of the 2. Many people get anxious as they age, rochelle if they live alone. You have been started on Sertraline. Sertraline is a serotonin reuptake inhibitor. It treats both anxiety and depression. It was started on 12/17/23 so you have been taking it for a week and you have not had any adverse side effects. I started you on the lowest dose, 25 mg daily. I would continue this dose for another 3 weeks and if you are still feeling anxious or depressed I would increase the dose to 50 mg daily. 6. You probably already know this but, I am going to say it anyway. When you are taking BP pills you need to move slower when changing positions. When you first awaken in the AM sit at the edge of the bed for a minute or 2 before standing and when you do stand then stand for 1-2 minutes before walking. I think this will help with the lightheadedness. You do not have vertigo and so I do not think you should be taking Antivert. Antivert can drop your BP when you stand and lead to increased lightheadedness. Avoid taking any diuretics since you often do not drink enough fluids and this can also increase lightheadedness. 7. You have some plaque in the Left carotid artery. Vascular surgery saw you at the other hospital and they recommended you take a baby aspirin daily and a statin to keep cholesterol controlled. Both these medications will decrease the risk of a stroke going forward. 8. Like most people your age you have arthritis. I started you on a medication called Celebrex which is an anti-inflammatory (NSAID). you have been taking it once a day since you were admitted to rehab and your joint pains have improved. Your blood count and kidney function are unchanged since admission. Always take the Celebrex with food. 9. I do not want you driving because of the lightheadedness and the TBI. TBI can cause dizziness and you already had this prior to the fall. there is a driving program in [place] that is run by the [facility]. They test vision and reaction time and your driving to make sure that you are safe to drive. I would like you to attend this program after a few months to see if you will be able to drive going forward. 10. We checked your Vitamin D level while you were on rehab. It was low. vitamin D is necessary for your body to absorb calcium from your GI tract to keep your bones healthy. I have started you on a Vitamin D supplement that you will take daily. If you have not had a bone density test in the past 2 years you may want to ask Dr. Nichols if you should have one. 11. It has been a pleasure meeting you Alison. If you or Malini have any questions after you leave rehab please do not hesitate to call me. OFFICE: [phone] CELL: [phone] Discharge Orders/Prescriptions Prescriptions: New metformin 500 mg Tablet 500 mg PO DAILYCM Qty: 30 0RF famotidine 20 mg Tablet 20 mg PO DAILY PRN (Reason: nausea/dyspepsia) Qty: 30 0RF losartan 25 mg Tablet 25 mg PO DAILY Qty: 30 0RF celecoxib 100 mg Capsule 100 mg PO DAILY Qty: 30 0RF Rx Instructions: Take this medication with food acidophilus-pectin, citrus 25 million cell -100 mg Tablet 1 tab PO BID Qty: 60 0RF cholecalciferol (vitamin D3) 25 mcg (1,000 unit) Tablet 25 mcg PO DAILYCM Qty: 30 0RF sertraline 50 mg Tablet 25 mg PO DAILY Qty: 30 0RF Rx Instructions: Take 1/2 tab daily in the morning. Continued brimonidine-timolol 0.2-0.5 % drops ophthalmic (eye) BID acetaminophen 500 mg capsule 1,000 mg PO Q8H PRN (Reason: pain) aspirin 81 mg capsule 81 mg PO DAILY multivitamin [Daily Multi-Vitamin] Tablet 1 tab PO DAILY Victoza 2-Morgan 0.6 mg/0.1 mL (18 mg/3 mL) pen injector 0.3 mg subcut DAILY ezetimibe 10 mg tablet 10 mg PO DAILY Qty: 30 0RF Discontinued lidocaine [Lidocaine Pain Relief] 4 % adhesive patch,medicated 1 patch topical Q12H spironolactone [Aldactone] 50 mg tablet 50 mg PO DAILY naproxen [EC-Naprosyn] 500 mg tablet,delayed release (DR/EC) 250 mg PO .Q6H/PRN No Action diclofenac sodium 1 % gel TOPICAL BID Referrals / Follow Up: Erich Kerr [Other] - 01/05/24 2:00 pm ([facility] 2nd Floor, [address]) Alba Yoo [Other] (Make appt with Vascular surgery in 1 year. ) TSERING NICHOLS DO [Non-Staff] - 01/12/24 1:20 pm (Arrive by 1:05pm) Disposition Disposition (needs filled in before D/C Order can be placed): Home Health Service Charges/Coding Visit Charges Inpatient E&M: 11721 Disch Hosp >30min
--- NOTE | 2023-12-24 13:23 | CASEMGMT ---
Social Work Dr notified this worker that overnight trending pulse ox showed pt does not need O2 at this time. SW updated [employer] to cancel referral. Bhavna Paige MSW [employer]
[2023-12-24 17:30] LABS: Bedside Glucose 127 mg/dL (74-106)
[2023-12-24 19:44] VITALS: BP 170/83; PULSE 76; RESP 17; TEMP 36.9; O2SAT 97
[2023-12-25] MEDS: Enoxaparin 40 MG/0.4 ML Syringe SC (05:51)
[2023-12-25] MEDS: Acetaminophen 500 MG Tablet 1000 MG PO ×2 (05:52→14:11)
[2023-12-25] MEDS: Arthritis Pain Compound 60 CLICK TUBE TOPICAL (05:57)
[2023-12-25 06:54] LABS: Bedside Glucose 128 mg/dL (74-106)
[2023-12-25] MEDS: metFORMIN HCl 500 MG Tablet PO (08:40)
[2023-12-25] MEDS: Aspirin 81 MG TAB.CHEW PO (08:40)
[2023-12-25] MEDS: Losartan Potassium 25 MG Tablet PO (08:41)
[2023-12-25] MEDS: Cholecalciferol (VIT D3) 25 MCG TABLET (1,000 UNITS) PO (08:41)
[2023-12-25] MEDS: Ezetimibe 10 MG Tablet PO (08:41)
[2023-12-25] MEDS: Lidocaine 5% Patch 1 PATCH TOPICAL (08:42)
[2023-12-25] MEDS: Celecoxib 100 MG Capsule PO (08:42)
[2023-12-25] MEDS: Multivitamins,Therapeutic Tablet 1 TABLET PO (08:43)
[2023-12-25] MEDS: Sertraline 50 MG Tablet 25 MG PO (08:43)
[2023-12-25] MEDS: Doxycycline 100 MG CAPSULE PO (08:44)
[2023-12-25] MEDS: BRIMONIDINE TARTRATE OPHTHALMIC (08:44)
[2023-12-25] MEDS: TIMOLOL OPHTHALMIC (08:44)
[2023-12-25 10:00] VITALS: BP 152/63; PULSE 81; RESP 17; TEMP 36.8; O2SAT 95
[2023-12-25 14:00] VITALS: BP 152/63; PULSE 81; RESP 17; TEMP 36.8; O2SAT 95
--- NOTE | 2023-12-25 14:15 | NURSING ---
pt's daughter here and dc instructions gone over and given with no needs voiced. pt dressed and all belongings packed. escorted via [facility] with this rn
== END 2023-12-25 14:00 | disposition home health service (06) | DRG 560 ==
PROVIDERS: Admitting Provider Internal Medicine; Visit Provider Internal Medicine
DX: S02.119D Unspecified fracture of occiput, subsequent encounter for fracture with routine healing (principal); N30.00 Acute cystitis without hematuria; E11.59 Type 2 diabetes mellitus with other circulatory complications; E11.39 Type 2 diabetes mellitus with other diabetic ophthalmic complication; C44.309 Unspecified malignant neoplasm of skin of other parts of face; B95.7 Other staphylococcus as the cause of diseases classified elsewhere; E11.65 Type 2 diabetes mellitus with hyperglycemia; F32.A Depression, unspecified; I65.23 Occlusion and stenosis of bilateral carotid arteries; E86.0 Dehydration; E78.5 Hyperlipidemia, unspecified; W18.30XD Fall on same level, unspecified, subsequent encounter; M48.061 Spinal stenosis, lumbar region without neurogenic claudication; K58.2 Mixed irritable bowel syndrome; G47.33 Obstructive sleep apnea (adult) (pediatric); I87.2 Venous insufficiency (chronic) (peripheral); E55.9 Vitamin D deficiency, unspecified; G89.29 Other chronic pain; Z79.899 Other long term (current) drug therapy; Z79.82 Long term (current) use of aspirin; R09.02 Hypoxemia; H40.9 Unspecified glaucoma; Z91.81 History of falling; Z79.84 Long term (current) use of oral hypoglycemic drugs; H91.90 Unspecified hearing loss, unspecified ear; Z23 Encounter for immunization; R42 Dizziness and giddiness; S32.009D Unspecified fracture of unspecified lumbar vertebra, subsequent encounter for fracture with routine healing
CPT/HCPCS: 36415; 80048; 80053; 81001; 82306; 82962; 83735; 84100; 85025; 85027; 87077; 87086; 87088; 87186; 92507; 92523; 94762; 97110; 97116; 97129; 97130; 97162; 97166; 97530; 97535; 97802; 97803; G0008; 90662

== ENCOUNTER → 2024-01-04 | Outpatient (CLI) | payer MEDICARE, BC, SELFPAY | END | disposition home or self-care (01) | LOC: SL 19:56 | PROVIDERS: Referring Provider Internal Medicine; Visit Provider Internal Medicine | DX: G47.10 Hypersomnia, unspecified (principal) | CPT/HCPCS: 95810 ==